=== PATIENT | male | born 1960 | race Caucasian/White ===

== ENCOUNTER 2016-12-04 12:35 | Emergency (ER) | payer MEDICARE, OTHER ==
--- NOTE | 2016-12-04 12:46 | ER Document Report ---
ED Medical Screen (RME) - General Stated Complaint: TOOTH PAIN Mode of Arrival: Ambulatory Information source: Patient Notes: 56 y/o M presents to ED c/o bliateral upper dental pain. Denies fever, difficulty breathing or swallowing. I have greeted and performed a rapid initial assessment of this patient. A comprehensive ED assessment and evaluation of the patient, analysis of test results and completion of the medical decision making process will be conducted by additional ED providers. TRAVEL OUTSIDE OF THE [place] IN LAST 30 DAYS: No - Related Data Allergies/Adverse Reactions: No Known Allergies Allergy (Verified 08/25/16 16:56) Past Medical History - Past Medical History Cardiac Medical History: Reports: Hx Hypertension Endocrine Medical History: Reports: Hx Diabetes Mellitus Type 2 Past Surgical History: Reports: Hx Orthopedic Surgery - neck/back, Hx Thyroid Surgery - Immunizations Hx Diphtheria, Pertussis, Tetanus Vaccination: Yes Physical Exam - Vital signs Vitals: Temp Pulse Resp BP Pulse Ox 98.1 F 72 20 134/84 H 96 12/04/16 12:42 12/04/16 12:42 12/04/16 12:42 12/04/16 12:42 12/04/16 12:42 - General General appearance: Appears well, Alert In distress: None - Respiratory Respiratory status: No respiratory distress Course - Vital Signs Vital signs: Temp Pulse Resp BP Pulse Ox 98.1 F 72 20 134/84 H 96 12/04/16 12:42 12/04/16 12:42 12/04/16 12:42 12/04/16 12:42 12/04/16 12:42
--- NOTE | 2016-12-04 16:42 | ER Document Report ---
ED Oral Problem - General Chief Complaint: Toothache Stated Complaint: TOOTH PAIN Mode of Arrival: Ambulatory TRAVEL OUTSIDE OF THE [place] IN LAST 30 DAYS: No - Related Data Allergies/Adverse Reactions: No Known Allergies Allergy (Verified 12/04/16 12:45) Past Medical History - General Information source: Patient - Social History Smoking Status: Current Every Day Smoker Chew tobacco use (# tins/day): No Frequency of alcohol use: None Drug Abuse: None Family History: Reviewed & Not Pertinent Patient has suicidal ideation: No Patient has homicidal ideation: No - Past Medical History Cardiac Medical History: Reports: Hx Hypertension Endocrine Medical History: Reports: Hx Diabetes Mellitus Type 2 Renal/ Medical History: Denies: Hx Peritoneal Dialysis Past Surgical History: Reports: Hx Orthopedic Surgery - neck/back, Hx Thyroid Surgery - Immunizations Hx Diphtheria, Pertussis, Tetanus Vaccination: Yes Physical Exam - Vital signs Vitals: Temp Pulse Resp BP Pulse Ox 98.1 F 72 20 134/84 H 96 12/04/16 12:42 12/04/16 12:42 12/04/16 12:42 12/04/16 12:42 12/04/16 12:42 Course - Vital Signs Vital signs: Temp Pulse Resp BP Pulse Ox 98.1 F 72 20 134/84 H 96 12/04/16 12:42 12/04/16 12:42 12/04/16 12:42 12/04/16 12:42 12/04/16 12:42 Discharge - Discharge Clinical Impression: Dental caries, Pain, dental Condition: Stable Disposition: HOME, SELF-CARE Instructions: Toothache ([facility]), [facility], Penicillin V K ([facility]), Dentist Additional Instructions: Please follow-up with one of the dental Clinics regarding your symptoms. Prescriptions: Naproxen [Naprosyn 250 mg Tablet] 250 mg PO DAILY PRN #30 tablet PRN Reason: Penicillin V Potassium [Penicillin Vk 500 mg Tablet] 500 mg PO TID #30 tablet Tramadol HCl [Ultram 50 mg Tablet] 50 mg PO BIDP PRN #20 tablet PRN Reason: Referrals: ERIN ESPOSITO MD [Primary Care Provider] - Follow up as needed
[2016-12-04 17:12] VITALS: BP 127/77
--- NOTE | 2016-12-04 17:17 | ER Document Report ---
ED Oral Problem - General Mode of Arrival: Ambulatory Information source: Patient TRAVEL OUTSIDE OF THE [place] IN LAST 30 DAYS: No - HPI Patient complains to provider of: Toothache Onset: Other - chronic for months Quality of pain: Achy Pain Level: 1 Similar symptoms previously: Yes - General Chief Complaint: Toothache Stated Complaint: TOOTH PAIN Notes: Patient is a 56-year-old male that presents to the emergency department today with complaints of dental pain. Patient states that he has had "bad teeth" for quite some time, and today he was talking to his pharmacist who told him he should come to the emergency department to be evaluated. Patient complains of pain to both the right upper and left upper teeth. Patient describes what sounds like an abscess a few weeks ago that has since drained. (ISIAH JACKSON) - Related Data Allergies/Adverse Reactions: No Known Allergies Allergy (Verified 12/04/16 12:45) Past Medical History - General Information source: Patient - Social History Smoking Status: Current Every Day Smoker Cigarette use (# per day): Yes Chew tobacco use (# tins/day): No Frequency of alcohol use: None Drug Abuse: None Lives with: Family Family History: Reviewed & Not Pertinent Patient has suicidal ideation: No Patient has homicidal ideation: No - Past Medical History Cardiac Medical History: Reports: Hx Hypertension Endocrine Medical History: Reports: Hx Diabetes Mellitus Type 2 Past Surgical History: Reports: Hx Orthopedic Surgery - neck/back, Hx Thyroid Surgery - Immunizations Hx Diphtheria, Pertussis, Tetanus Vaccination: Yes Review of Systems - Review of Systems Constitutional: No symptoms reported EENT: See HPI, Other - dental pain Cardiovascular: No symptoms reported Respiratory: No symptoms reported Gastrointestinal: No symptoms reported Genitourinary: No symptoms reported Male Genitourinary: No symptoms reported Musculoskeletal: No symptoms reported Skin: No symptoms reported Hematologic/Lymphatic: No symptoms reported Neurological/Psychological: No symptoms reported -: Yes All other systems reviewed and negative Physical Exam - HEENT Head: Normocephalic, Atraumatic Eyes: Normal - Respiratory Respiratory status: No respiratory distress - Cardiovascular Rhythm: Regular - Abdominal Inspection: Normal Distension: No distension - Extremities General upper extremity: Normal inspection, Normal ROM. No: Edema General lower extremity: Normal inspection, Normal ROM. No: Edema - Neurological Neuro grossly intact: Yes Cognition: Normal Orientation: AAOx4 - Psychological Associated symptoms: Normal affect, Normal mood - Skin Skin Temperature: Warm Skin Moisture: Dry Skin Color: Normal - Vital signs Vitals: Temp Pulse Resp BP Pulse Ox 98.1 F 72 20 134/84 H 96 12/04/16 12:42 12/04/16 12:42 12/04/16 12:42 12/04/16 12:42 12/04/16 12:42 (ISIAH JACKSON) (MELLO BARKLEY) - HEENT Notes: Poor dentition throughout. No fluctuance or erythema. No mandibular swelling or cheek swelling. Multiple dental caries throughout. (ISIAH JACKSON) Course - Re-evaluation Re-evalutation: 12/04/16 Patient is a 56-year-old male who comes in with dental caries. Patient has had toothache for quite some time. Patient states that one tooth is bothering him more than usual recently. Patient will be started on penicillin and given a list of low-cost dental clinics. Understands and agrees with plan. Stable for discharge. No evidence for abscess at this time. (MELLO BARKLEY) - Vital Signs Vital signs: Temp Pulse Resp BP Pulse Ox 97.8 F 64 16 127/77 H 98 12/04/16 17:08 12/04/16 17:08 12/04/16 17:08 12/04/16 17:08 12/04/16 17:08 (ISIAH JACKSON) (MELLO BARKLEY) Discharge - Discharge Clinical Impression: Dental caries, Pain, dental Condition: Stable Disposition: HOME, SELF-CARE Instructions: [facility], Dentist, Penicillin V K ([facility]), Toothache ([facility]) Additional Instructions: Please follow-up with one of the dental Clinics regarding your symptoms. Prescriptions: Naproxen [Naprosyn 250 mg Tablet] 250 mg PO DAILY PRN #30 tablet PRN Reason: Penicillin V Potassium [Penicillin Vk 500 mg Tablet] 500 mg PO TID #30 tablet Tramadol HCl [Ultram 50 mg Tablet] 50 mg PO BIDP PRN #20 tablet PRN Reason: Referrals: ERIN ESPOSITO MD [Primary Care Provider] - Follow up as needed Scribe Attestation: 12/04/16 18:25 I personally performed the services described in the documentation, reviewed and edited the documentation which was dictated to the scribe in my presence, and it accurately records my words and actions. (MELLO BARKLEY) Scribe Documentation - Scribe Written by Olivier:: Olivier Rosales, 12/04/2016 1717 acting as scribe for :: Fatimah
== END 2016-12-04 16:50 | disposition home or self-care (01) ==
LOC: ER 12:35
DX: K02.9 Dental caries, unspecified (principal); K08.9 Disorder of teeth and supporting structures, unspecified; F17.210 Nicotine dependence, cigarettes, uncomplicated; I10 Essential (primary) hypertension; E11.9 Type 2 diabetes mellitus without complications
CPT/HCPCS: 99282

== ENCOUNTER → 2016-12-29 | Outpatient (CLI) | payer MEDICARE, OTHER ==
[2016-12-29 13:44] LABS: ALANINE AMINOTRANSFERASE 32 U/L (21-72); ALBUMIN 4.4 g/dL (3.5-5.0); ALKALINE PHOSPHATASE 53 U/L (38-126); ANION GAP 13 (5-19); ASPARTATE AMINO TRANSFERASE 16 U/L (17-59); BILIRUBIN,DIRECT 0.3 mg/dL (0.0-0.4); BILIRUBIN,TOTAL 0.9 mg/dL (0.2-1.3); BLOOD UREA NITROGEN 13 mg/dL (7-20); CARBON DIOXIDE 29 mmol/L (22-30); CHLORIDE 101 mmol/L (98-107); CHOLESTEROL 172.06 mg/dL (0-200); CREATININE RESULT 0.98 mg/dL (0.52-1.25); Direct HDL 40 mg/dL (>40); GLUCOSE 107 mg/dL (75-110); POTASSIUM 5.4 mmol/L (3.6-5.0); SODIUM 142.8 mmol/L (137-145); TOTAL PROTEIN 7.1 g/dL (6.3-8.2); TRIGLYCERIDES 96 mg/dL (<150)
[2016-12-29 14:08] LABS: DIRECT LDL 110 mg/dL (<100)
== END ==
LOC: OD 12:38
PROVIDERS: ATTEND Internal Medicine
DX: I35.1 Nonrheumatic aortic (valve) insufficiency (principal); I10 Essential (primary) hypertension; E78.4 Other hyperlipidemia; E11.9 Type 2 diabetes mellitus without complications; M48.00 Spinal stenosis, site unspecified; R07.9 Chest pain, unspecified; Z79.899 Other long term (current) drug therapy
CPT/HCPCS: 36415; 80053; 80061; 83036

== ENCOUNTER 2017-01-11 18:40 | Emergency (ER) | payer MEDICARE, OTHER ==
[2017-01-11] MEDS ORDERED: LIDOCAINE 1% INJ-PF (10 MG/ML) 30 ML SDV INJ ONE (19:30)
--- NOTE | 2017-01-11 19:32 | ER Document Report ---
ED General - General Chief Complaint: Foot Pain Stated Complaint: RIGHT FOOT TOE PROBLEM TRAVEL OUTSIDE OF THE [place] IN LAST 30 DAYS: No - HPI Patient complains to provider of: foot infection Notes: Diabetic her right third toe infection with possible surrounding cellulitis looks like possible paronychia. Denies fevers chills nausea vomiting - Related Data Allergies/Adverse Reactions: Penicillins Allergy (Verified 01/11/17 18:46) Past Medical History - Social History Smoking Status: Unknown if Ever Smoked Family History: Reviewed & Not Pertinent Patient has suicidal ideation: No Patient has homicidal ideation: No - Past Medical History Cardiac Medical History: Reports: Hx Hypertension Endocrine Medical History: Reports: Hx Diabetes Mellitus Type 2 Renal/ Medical History: Denies: Hx Peritoneal Dialysis Past Surgical History: Reports: Hx Orthopedic Surgery - neck/back, Hx Thyroid Surgery - Immunizations Hx Diphtheria, Pertussis, Tetanus Vaccination: Yes Review of Systems - Review of Systems Constitutional: Other - Foot infection Physical Exam - Vital signs Vitals: Temp Pulse Resp BP Pulse Ox 98.5 F 102 H 21 H 120/66 97 01/11/17 18:47 01/11/17 18:47 01/11/17 18:47 01/11/17 18:47 01/11/17 18:47 - Respiratory Respiratory status: No respiratory distress Chest status: Nontender Breath sounds: Normal Course - Vital Signs Vital signs: Temp Pulse Resp BP Pulse Ox 98.5 F 102 H 21 H 120/66 97 01/11/17 18:47 01/11/17 18:47 01/11/17 18:47 01/11/17 18:47 01/11/17 18:47
[2017-01-11 19:49] LABS: ABSOLUTE BASOPHILS # (AUTO) 0.1 10^3/uL (0.0-0.2); ABSOLUTE EOSINOPHILS # (AUTO) 0.2 10^3/uL (0.0-0.6); ABSOLUTE LYMPHOCYTES (AUTO) 1.3 10^3/uL (0.5-4.7); ABSOLUTE MONOCYTES (AUTO) 1.2 10^3/uL (0.1-1.4); ABSOLUTE NEUT (AUTO) 14.7 10^3/uL (1.7-8.2); BASOPHILS % (AUTO) 0.3 % (0-2); EOSINOPHILS % (AUTO) 1.1 % (0-6); HEMATOCRIT 48.4 % (37.9-51.0); HGB HCT DIFFERENCE -0.4; LYMPHOCYTES % (AUTO) 7.7 % (13-45); MEAN CORPUSCULAR HEMOGLOBIN 28.4 pg (27.0-33.4); MEAN CORPUSCULAR VOLUME 86 fl (80-97); MONOCYTES % (AUTO) 6.8 % (3-13); RED BLOOD COUNT 5.63 10^6/uL (4.35-5.55); RED CELL DISTRIBUTION WIDTH 13.5 % (11.5-14.0); SEGMENTED NEUTROPHILS % (AUTO) 84.1 % (42-78); WHITE BLOOD COUNT 17.5 10^3/uL (4.0-10.5)
[2017-01-11 20:06] LABS: ANION GAP 17 (5-19); BLOOD UREA NITROGEN 18 mg/dL (7-20); CALCIUM 10.1 mg/dL (8.4-10.2); CARBON DIOXIDE 26 mmol/L (22-30); CHLORIDE 100 mmol/L (98-107); GLUCOSE 97 mg/dL (75-110); POTASSIUM 4.7 mmol/L (3.6-5.0); SODIUM 143.4 mmol/L (137-145)
[2017-01-11] MEDS ORDERED: CLINDAMYCIN 600 MG/D5W RTU 50 ML IV ONE (23:07)
--- NOTE | 2017-01-12 02:45 | ER Document Report ---
ED Extremity Problem, Lower - General Chief Complaint: Foot Pain Stated Complaint: RIGHT FOOT TOE PROBLEM Mode of Arrival: Ambulatory Information source: Patient Notes: 56 y/o M presents to ED c/o right 3rd toe swelling, redness, and pain. Pt reports "picks" at his toenails and noted onset of progressively worsening symptoms approximately 3 days ago. Denies fever, leg or calf pain, drainage, nausea or vomiting. Pt reports hx of type 2 DM controlled on Metformin. Reports tetanus vaccination within the last 2 years. TRAVEL OUTSIDE OF THE [place] IN LAST 30 DAYS: No - HPI Patient complains to provider of: Pain Pain Level: 2 Recent injury: No Exacerbated by: Movement, Walking Relieved by: Elevation, Rest - Related Data Allergies/Adverse Reactions: Penicillins Allergy (Verified 01/11/17 18:46) Past Medical History - General Information source: Patient - Social History Smoking Status: Never Smoker Frequency of alcohol use: None Drug Abuse: None Lives with: Family Family History: Reviewed & Not Pertinent Patient has suicidal ideation: No Patient has homicidal ideation: No - Past Medical History Cardiac Medical History: Reports: Hx Hypertension Endocrine Medical History: Reports: Hx Diabetes Mellitus Type 2 Renal/ Medical History: Denies: Hx Peritoneal Dialysis Past Surgical History: Reports: Hx Orthopedic Surgery - neck/back, Hx Thyroid Surgery - Immunizations Hx Diphtheria, Pertussis, Tetanus Vaccination: Yes Review of Systems - Review of Systems Constitutional: No symptoms reported EENT: No symptoms reported Cardiovascular: No symptoms reported Respiratory: No symptoms reported Gastrointestinal: No symptoms reported Genitourinary: No symptoms reported Male Genitourinary: No symptoms reported Musculoskeletal: See HPI Skin: No symptoms reported Hematologic/Lymphatic: No symptoms reported Neurological/Psychological: No symptoms reported -: Yes All other systems reviewed and negative Physical Exam - Vital signs Vitals: Temp Pulse Resp BP Pulse Ox 98.5 F 102 H 21 H 120/66 97 01/11/17 18:47 01/11/17 18:47 01/11/17 18:47 01/11/17 18:47 01/11/17 18:47 Interpretation: Normal - General General appearance: Appears well, Alert In distress: None - HEENT Head: Normocephalic, Atraumatic Eyes: Normal Pupils: PERRL - Respiratory Respiratory status: No respiratory distress Chest status: Nontender Breath sounds: Normal Chest palpation: Normal - Cardiovascular Rhythm: Regular Heart sounds: Normal auscultation Murmur: No Pulses: Normal: Radial, Posterior tibial, Dorsalis pedis Normal capillary refill: Yes - Abdominal Inspection: Normal Distension: No distension Bowel sounds: Normal Tenderness: Nontender Organomegaly: No organomegaly - Back Back: Normal, Nontender - Extremities General upper extremity: Normal inspection, Nontender, Normal color, Normal ROM , Normal strength, Normal temperature. No: Edema General lower extremity: Normal inspection, Nontender, Normal color, Normal ROM , Normal strength, Normal temperature, Normal weight bearing. No: Edema, Diego' s sign Calf: Normal, Nontender Ankle: Normal, Nontender Foot: Nail injury - pt has paronychia/abscess to medial aspect of distal right 3rd toe. Localized swelling and erythema extends to base of toe. No swelling, erythema, or warmth to foot or lower leg. Fine sensation intact, immediate capillary refill, and palpable pedal pulses. 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 Paronychia incised and drained and toenail removed as it was loosely attached to abscessed area. No significant cellulitis involving the foot or leg. Patient tolerated well. First dose clindamycin given in the emergency department intravenously as patient is allergic to penicillins. Patient presentation, findings, and care were discussed with Dr. Novak who is on-call for patient's primary care provider Dr. Esposito. Patient will follow- up with PCP tomorrow and agrees with home care, follow-up, and ED return precautions. - Vital Signs Vital signs: Temp Pulse Resp BP Pulse Ox 98.5 F 87 16 110/53 L 96 01/12/17 03:15 01/12/17 03:15 01/12/17 03:15 01/12/17 03:15 01/12/17 03:15 - Laboratory Result Diagrams: 01/11/17 19:30 01/11/17 19:30 Laboratory results interpreted by me: 01/11/17 19:30 WBC 17.5 H RBC 5.63 H Seg Neutrophils % 84.1 H Lymphocytes % 7.7 L Absolute Neutrophils 14.7 H - Diagnostic Test Radiology reviewed: Image reviewed, Reports reviewed Procedures - Nail Trephanation/Removal Right Foot 3rd digit Time completed: 01:00 - analgesia with digital block with 1% lidocaine Nail Trepanation/Removal Location: right 3rd toe Betadine prep applied: Yes Method of Drainage: Other - paronychia was drained with scalpel incision and toenail was completely removed. Pt tolerated well. Sterile Dressing Applied: Yes Finger Splint: Yes - amilcar taped to 2nd toe Discharge - Discharge Clinical Impression: Paronychia of third toe, right, Cellulitis of toe of right foot Condition: Stable Disposition: HOME, SELF-CARE Instructions: Paronychia ([facility]), Elevate the Injury ([facility]), Clindamycin ([facility]), Anti-Inflammatory Medication ([facility]), Cellulitis ([facility]) Additional Instructions: -Keep area clean and dry. -Do Warm water soaks twice daily for 5-10 mins using Half-strength hydrogen peroxide OR Dilute povidone solution 1 tsp/gallon water for 5 to 7 days -Elevate your leg and wear open or wide toed shoes. -Follow-up with your primary care provider tomorrow. -Return to the emergency department for any worsening symptoms or concerns. Prescriptions: Clindamycin HCl 300 mg PO Q6H #28 capsule Naproxen [Naprosyn 375 Mg Tablet] 375 mg PO BIDP PRN #10 tablet PRN Reason: Referrals: ERIN ESPOSITO MD [Primary Care Provider] - Follow up tomorrow
[2017-01-12 03:32] VITALS: BP 110/53
== END 2017-01-12 03:34 | disposition home or self-care (01) ==
LOC: ER 18:40
PROC: 0HBRXZZ Excision of Toe Nail, External Approach (ICD-10-PCS; principal; 2017-01-11)
DX: L03.031 Cellulitis of right toe (principal); M79.671 Pain in right foot; E11.9 Type 2 diabetes mellitus without complications
CPT/HCPCS: 36415; 80048; 85025; 87040; 87070; 87075; 87077; 87186; 87205; 96365; 99284

== ENCOUNTER 2017-02-03 19:36 | Emergency (ER) | payer MEDICARE, OTHER ==
[2017-02-03] MEDS ORDERED: NORMAL SALINE 1000 ML 1,000 ML IV PRN ×2 (20:00→20:29)
[2017-02-03 20:08] LABS: ABSOLUTE BASOPHILS # (AUTO) 0.1 10^3/uL (0.0-0.2); ABSOLUTE EOSINOPHILS # (AUTO) 0.1 10^3/uL (0.0-0.6); ABSOLUTE MONOCYTES (AUTO) 0.8 10^3/uL (0.1-1.4); ABSOLUTE NEUT (AUTO) 12.4 10^3/uL (1.7-8.2); BASOPHILS % (AUTO) 0.5 % (0-2); EOSINOPHILS % (AUTO) 0.7 % (0-6); HEMATOCRIT 42.3 % (37.9-51.0); HEMOGLOBIN 13.9 g/dL (13.5-17.0); HGB HCT DIFFERENCE -0.6; LYMPHOCYTES % (AUTO) 7.3 % (13-45); MEAN CORPUSCULAR HEMOGLOBIN 28.4 pg (27.0-33.4); MEAN CORPUSCULAR HGB CONC 32.8 g/dL (32.0-36.0); MEAN CORPUSCULAR VOLUME 86 fl (80-97); MONOCYTES % (AUTO) 5.3 % (3-13); RED CELL DISTRIBUTION WIDTH 13.8 % (11.5-14.0); SEGMENTED NEUTROPHILS % (AUTO) 86.2 % (42-78); WHITE BLOOD COUNT 14.3 10^3/uL (4.0-10.5)
--- NOTE | 2017-02-03 20:13 | ER Document Report ---
ED Dizziness/Weakness - General Stated Complaint: WEAKNESS Time seen by provider: 20:09 Mode of Arrival: Stretcher Information source: Patient TRAVEL OUTSIDE OF THE [place] IN LAST 30 DAYS: No - HPI Patient complains to provider of: Dizziness Onset: Just prior to arrival Onset/Duration: Sudden Quality of pain: No pain Severity: Moderate Associated symptoms: Dizzy, Hearing loss, Lightheaded, Sweating Baseline gait: Walks w/o assistance Notes: Patient is a 56-year-old male with a history of diabetes, hypothyroidism, hypertension and BPH, who presents to the emergency room complaining of dizziness with diaphoresis, decreased vision and decreased hearing that started abruptly just after eating dinner which consistent of a burger, fries and a soft drink, he denies any chest pain, no shortness of breath at time of symptoms , no abdominal pain, he does report diffuse muscle cramping over the past few days and shortness of breath while laying flat on the stretcher at time of evaluation, he reports a history of vertigo in the past but reports he symptoms are slightly different, EMS reports that his initial blood pressure on arrival was 80/40, he got 200 mL's of normal saline, patient reports feeling much better at time of my initial evaluation - Related Data Allergies/Adverse Reactions: Penicillins Allergy (Verified 02/03/17 23:01) Past Medical History - General Information source: Patient - Social History Smoking Status: Never Smoker Family History: Reviewed & Not Pertinent - Past Medical History Cardiac Medical History: Reports: Hx Hypertension Endocrine Medical History: Reports: Hx Diabetes Mellitus Type 2 Renal/ Medical History: Denies: Hx Peritoneal Dialysis Past Surgical History: Reports: Hx Orthopedic Surgery - neck/back, Hx Thyroid Surgery - Immunizations Hx Diphtheria, Pertussis, Tetanus Vaccination: Yes Review of Systems - Review of Systems Constitutional: Diaphoresis EENT: No symptoms reported Cardiovascular: See HPI Respiratory: No symptoms reported Gastrointestinal: No symptoms reported Genitourinary: No symptoms reported Male Genitourinary: No symptoms reported Musculoskeletal: See HPI Skin: No symptoms reported Hematologic/Lymphatic: No symptoms reported Neurological/Psychological: No symptoms reported -: Yes All other systems reviewed and negative Physical Exam - Vital signs Vitals: Temp Pulse Resp BP Pulse Ox 98.1 F 75 18 89/56 L 98 02/03/17 19:40 02/03/17 19:40 02/03/17 19:40 02/03/17 19:40 02/03/17 19:40 Interpretation: Hypotensive - General General appearance: Appears well, Alert - HEENT Head: Normocephalic, Atraumatic Eyes: Normal Pupils: PERRL - Respiratory Respiratory status: No respiratory distress Chest status: Nontender Breath sounds: Normal Chest palpation: Normal - Cardiovascular Rhythm: Regular Heart sounds: Normal auscultation Murmur: No - Abdominal Inspection: Normal Distension: No distension Bowel sounds: Normal Tenderness: Nontender Organomegaly: No organomegaly - Back Back: Normal, Nontender - Extremities General upper extremity: Normal inspection, Nontender, Normal color, Normal ROM , Normal temperature General lower extremity: Normal inspection, Nontender, Normal color, Normal ROM , Normal temperature, Normal weight bearing. No: Diego's sign - Neurological Neuro grossly intact: Yes Cognition: Normal Orientation: AAOx4 [place] Coma Scale Eye Opening: Spontaneous [place] Coma Scale Verbal: Oriented Gayatri Coma Scale Motor: Obeys Commands [place] Coma Scale Total: 15 Speech: Normal Motor strength normal: LUE, RUE, LLE, RLE Sensory: Normal - Psychological Associated symptoms: Normal affect, Normal mood - Skin Skin Temperature: Warm Skin Moisture: Dry Skin Color: Normal Course - Re-evaluation Re-evalutation: 02/03/17 23:22 Patient reports feeling much better after IV fluids, lab findings were discussed with him at bedside, patient was able to ambulate without any return of symptoms, vital signs have been stable, patient will be discharged with instructions for follow-up, advised to return if symptoms worsen, patient acknowledges understanding and agreement with this plan - Vital Signs Vital signs: Temp Pulse Resp BP Pulse Ox 98.7 F 75 16 127/71 H 94 02/03/17 22:58 02/03/17 19:40 02/03/17 22:53 02/03/17 22:58 02/03/17 22:53 - Laboratory Result Diagrams: 02/03/17 19:54 02/03/17 19:54 Laboratory results interpreted by me: 02/03/17 02/03/17 19:54 19:54 WBC 14.3 H Seg Neutrophils % 86.2 H Lymphocytes % 7.3 L Absolute Neutrophils 12.4 H Creatinine 1.66 H Est GFR ( Amer) 52 L Est GFR (Non-Af Amer) 43 L Glucose 181 H Creatine Kinase 53 L - EKG Interpretation by Me EKG shows normal: Sinus rhythm Rate: Normal Rhythm: NSR When compared to previous EKG there are: No significant change Critical Care Note - Critical Care Note Total time excluding time spent on procedures (mins): 30 Comments: Patient arrived to the department hypotensive with dizziness and near syncopal episode, requiring IV fluids, repeat vital signs and multiple re-evaluations prior to discharge Discharge - Discharge Clinical Impression: Dizziness, Dehydration Hypotension Qualifiers: Hypotension type: unspecified hypotension type Qualified Code(s): I95.9 - Hypotension, unspecified Condition: Stable Disposition: HOME, SELF-CARE Instructions: Dehydration ([facility]), Hypotension ([facility]) Additional Instructions: Follow up with your primary care provider in one to 2 days. Return to the emergency room immediately if symptoms worsen or any additional concerns. Forms: Return to Work Referrals: ERIN ESPOSITO MD [Primary Care Provider] - Follow up as needed
[2017-02-03 20:27] LABS: ALANINE AMINOTRANSFERASE 31 U/L (21-72); ALKALINE PHOSPHATASE 48 U/L (38-126); ANION GAP 15 (5-19); ASPARTATE AMINO TRANSFERASE 17 U/L (17-59); BILIRUBIN,DIRECT 0.3 mg/dL (0.0-0.4); BILIRUBIN,TOTAL 0.7 mg/dL (0.2-1.3); BLOOD UREA NITROGEN 18 mg/dL (7-20); CARBON DIOXIDE 25 mmol/L (22-30); CHLORIDE 99 mmol/L (98-107); CREATINE KINASE 53 U/L (55-170); CREATININE RESULT 1.66 mg/dL (0.52-1.25); GLUCOSE 181 mg/dL (75-110); POTASSIUM 4.8 mmol/L (3.6-5.0); SODIUM 138.7 mmol/L (137-145); TOTAL PROTEIN 6.7 g/dL (6.3-8.2)
[2017-02-03 20:42] LABS: TROPONIN I < 0.012 ng/mL
[2017-02-03 20:44] LABS: FREE T3 2.98 pg/mL (2.77-5.27)
[2017-02-03 20:58] LABS: THYROID STIMULATING HORMONE 4.66 uIU/mL (0.47-4.68)
--- NOTE | 2017-02-03 22:20 | EKG REPORT ---
SEVERITY:- BORDERLINE ECG - SINUS RHYTHM PROBABLE LEFT ATRIAL ABNORMALITY BORDERLINE LEFT AXIS DEVIATION : Confirmed by: Dimitri Salazar 03-Feb-2017 22:20:24
[2017-02-03 23:06] VITALS: BP 127/71
== END 2017-02-03 23:16 | disposition home or self-care (01) ==
LOC: ER 19:36
DX: E86.0 Dehydration (principal); I95.9 Hypotension, unspecified; R42 Dizziness and giddiness; R61 Generalized hyperhidrosis; E11.9 Type 2 diabetes mellitus without complications; I10 Essential (primary) hypertension; H54.7 Unspecified visual loss; H91.90 Unspecified hearing loss, unspecified ear; M62.838 Other muscle spasm; R06.02 Shortness of breath; Z88.0 Allergy status to penicillin
CPT/HCPCS: 36415; 80053; 82550; 82553; 82962; 84439; 84443; 84481; 84484; 85025; 93005; 93010; 99291

== ENCOUNTER → 2017-04-29 | Outpatient (CLI) | payer MEDICARE, OTHER ==
[2017-05-01 10:15] LABS: PROSTATE SPECIFIC ANTIGEN 2.4 ng/mL (0.0-4.0); PSA % FREE 20.4 % (.); PSA FREE 0.49 ng/mL
== END ==
LOC: OD 15:47
PROVIDERS: ATTEND Urology
DX: N40.1 Benign prostatic hyperplasia with lower urinary tract symptoms (principal)
CPT/HCPCS: 36415; 84154

== ENCOUNTER → 2017-07-06 | Outpatient (CLI) | payer MEDICARE, OTHER ==
[2017-07-06 15:10] LABS: ALANINE AMINOTRANSFERASE 37 U/L (21-72); ALBUMIN 4.2 g/dL (3.5-5.0); ALKALINE PHOSPHATASE 58 U/L (38-126); ANION GAP 10 (5-19); ASPARTATE AMINO TRANSFERASE 19 U/L (17-59); BILIRUBIN,DIRECT 0.3 mg/dL (0.0-0.4); BILIRUBIN,TOTAL 0.9 mg/dL (0.2-1.3); BLOOD UREA NITROGEN 10 mg/dL (7-20); CALCIUM 9.5 mg/dL (8.4-10.2); CARBON DIOXIDE 30 mmol/L (22-30); CHLORIDE 100 mmol/L (98-107); CHOLESTEROL 170.43 mg/dL (0-200); CREATININE RESULT 0.93 mg/dL (0.52-1.25); Direct HDL 43 mg/dL (>40); GLUCOSE 89 mg/dL (75-110); POTASSIUM 4.8 mmol/L (3.6-5.0); SODIUM 140.3 mmol/L (137-145); TRIGLYCERIDES 80 mg/dL (<150)
[2017-07-06 15:22] LABS: DIRECT LDL 111 mg/dL (<100)
== END ==
LOC: OD 14:03
PROVIDERS: ATTEND Internal Medicine
DX: I35.1 Nonrheumatic aortic (valve) insufficiency (principal); I10 Essential (primary) hypertension; E78.4 Other hyperlipidemia; E11.9 Type 2 diabetes mellitus without complications; M48.00 Spinal stenosis, site unspecified; R07.9 Chest pain, unspecified; Z79.899 Other long term (current) drug therapy
CPT/HCPCS: 36415; 80053; 80061; 83036

== ENCOUNTER → 2018-01-01 | Outpatient (CLI) | payer MEDICARE ==
[2018-01-01 11:04] LABS: ALANINE AMINOTRANSFERASE 35 U/L (21-72); ALBUMIN 4.4 g/dL (3.5-5.0); ALKALINE PHOSPHATASE 47 U/L (38-126); ANION GAP 7 (5-19); ASPARTATE AMINO TRANSFERASE 17 U/L (17-59); BILIRUBIN,DIRECT 0.3 mg/dL (0.0-0.4); BILIRUBIN,TOTAL 0.3 mg/dL (0.2-1.3); BLOOD UREA NITROGEN 17 mg/dL (7-20); CALCIUM 9.7 mg/dL (8.4-10.2); CARBON DIOXIDE 32 mmol/L (22-30); CHLORIDE 103 mmol/L (98-107); CHOLESTEROL 159.01 mg/dL (0-200); GLUCOSE 111 mg/dL (75-110); POTASSIUM 5.2 mmol/L (3.6-5.0); SODIUM 141.8 mmol/L (137-145); TOTAL PROTEIN 7.2 g/dL (6.3-8.2); TRIGLYCERIDES 80 mg/dL (<150)
[2018-01-01 11:15] LABS: DIRECT LDL 107 mg/dL (<100)
== END ==
LOC: OD 09:57
PROVIDERS: ATTEND Internal Medicine
DX: I35.1 Nonrheumatic aortic (valve) insufficiency (principal); E11.9 Type 2 diabetes mellitus without complications; I10 Essential (primary) hypertension; E78.4 Other hyperlipidemia; R07.9 Chest pain, unspecified; Z79.899 Other long term (current) drug therapy
CPT/HCPCS: 36415; 80053; 80061; 83036

== ENCOUNTER → 2018-04-05 | Outpatient (CLI) | payer MEDICARE, MEDICAID ==
[2018-04-05 12:46] LABS: ALANINE AMINOTRANSFERASE 47 U/L (21-72); ALBUMIN 4.5 g/dL (3.5-5.0); ALKALINE PHOSPHATASE 51 U/L (38-126); ASPARTATE AMINO TRANSFERASE 24 U/L (17-59); BILIRUBIN,DIRECT 0.3 mg/dL (0.0-0.4); BILIRUBIN,TOTAL 0.6 mg/dL (0.2-1.3); CHOLESTEROL 122.68 mg/dL (0-200); TRIGLYCERIDES 78 mg/dL (<150)
[2018-04-05 12:57] LABS: DIRECT LDL 58 mg/dL (<100)
== END ==
LOC: OD 11:23
PROVIDERS: ATTEND Internal Medicine
DX: I35.1 Nonrheumatic aortic (valve) insufficiency (principal); I10 Essential (primary) hypertension; E78.4 Other hyperlipidemia; E11.9 Type 2 diabetes mellitus without complications; M48.00 Spinal stenosis, site unspecified; R07.9 Chest pain, unspecified; Z79.899 Other long term (current) drug therapy
CPT/HCPCS: 36415; 80061; 80076

== ENCOUNTER → 2018-04-30 | Outpatient (CLI) | payer MEDICARE, MEDICAID ==
[2018-05-01 16:46] LABS: PROSTATE SPECIFIC ANTIGEN 2.2 ng/mL (0.0-4.0); PSA % FREE 26.8 % (.); PSA FREE 0.59 ng/mL
== END ==
LOC: OD 11:32
PROVIDERS: ATTEND Urology
DX: N40.1 Benign prostatic hyperplasia with lower urinary tract symptoms (principal)
CPT/HCPCS: 36415; 84154

== ENCOUNTER → 2018-05-18 | Outpatient (CLI) | payer MEDICARE, MEDICAID ==
[2018-05-18 13:52] LABS: ABSOLUTE BASOPHILS # (AUTO) 0.1 10^3/uL (0.0-0.2); ABSOLUTE EOSINOPHILS # (AUTO) 0.2 10^3/uL (0.0-0.6); ABSOLUTE LYMPHOCYTES (AUTO) 1.6 10^3/uL (0.5-4.7); ABSOLUTE MONOCYTES (AUTO) 0.7 10^3/uL (0.1-1.4); ABSOLUTE NEUT (AUTO) 6.5 10^3/uL (1.7-8.2); BASOPHILS % (AUTO) 0.9 % (0-2); EOSINOPHILS % (AUTO) 2.6 % (0-6); HEMOGLOBIN 16.2 g/dL (13.5-17.0); LYMPHOCYTES % (AUTO) 17.2 % (13-45); MEAN CORPUSCULAR HEMOGLOBIN 31.2 pg (27.0-33.4); MEAN CORPUSCULAR HGB CONC 34.4 g/dL (32.0-36.0); MEAN CORPUSCULAR VOLUME 91 fl (80-97); MONOCYTES % (AUTO) 7.9 % (3-13); PLATELET COUNT 259 10^3/uL (150-450); RED BLOOD COUNT 5.18 10^6/uL (4.35-5.55); RED CELL DISTRIBUTION WIDTH 13.8 % (11.5-14.0); SEGMENTED NEUTROPHILS % (AUTO) 71.4 % (42-78); TOTAL CELLS COUNTED % (AUTO) 100 %; WHITE BLOOD COUNT 9.2 10^3/uL (4.0-10.5)
[2018-05-18 14:20] LABS: ALANINE AMINOTRANSFERASE 44 U/L (21-72); ALBUMIN 4.7 g/dL (3.5-5.0); ALKALINE PHOSPHATASE 64 U/L (38-126); ANION GAP 12 (5-19); ASPARTATE AMINO TRANSFERASE 28 U/L (17-59); BILIRUBIN,DIRECT 0.3 mg/dL (0.0-0.4); BLOOD UREA NITROGEN 19 mg/dL (7-20); CALCIUM 10.2 mg/dL (8.4-10.2); CARBON DIOXIDE 28 mmol/L (22-30); CHLORIDE 101 mmol/L (98-107); CHOLESTEROL 121.38 mg/dL (0-200); GLUCOSE 113 mg/dL (75-110); POTASSIUM 5.3 mmol/L (3.6-5.0); SODIUM 141.4 mmol/L (137-145); TOTAL PROTEIN 7.8 g/dL (6.3-8.2); TRIGLYCERIDES 87 mg/dL (<150)
[2018-05-18 14:33] LABS: DIRECT LDL 57 mg/dL (<100)
[2018-05-18 14:38] LABS: FREE T4 (FREE THYROXINE) 1.75 ng/dL (0.78-2.19)
[2018-05-18 14:52] LABS: THYROID STIMULATING HORMONE 3.49 uIU/mL (0.47-4.68)
== END ==
LOC: OD 12:53
PROVIDERS: ATTEND Family Medicine
DX: E03.9 Hypothyroidism, unspecified (principal); E78.4 Other hyperlipidemia; I10 Essential (primary) hypertension; E11.9 Type 2 diabetes mellitus without complications
CPT/HCPCS: 36415; 80053; 80061; 83036; 84439; 84443; 85025

== ENCOUNTER 2018-07-08 21:43 | Emergency (ER) | payer MEDICARE, MEDICAID ==
[2018-07-08] MEDS ORDERED: KETOROLAC TROMETHAMINE INJ/PF 30 MG/1 ML SDV IV ONE (22:39)
[2018-07-08] MEDS ORDERED: MORPHINE SULFATE 10 MG/ML INJ IV ONE (22:39)
[2018-07-08] MEDS ORDERED: ONDANSETRON HCL INJ/PF 4 MG/2 ML SDV IV ONE (22:39)
--- NOTE | 2018-07-08 22:43 | ER Document Report ---
ED Medical Screen (RME) - General Chief Complaint: Flank Pain Stated Complaint: SEVERE RIGHT SIDED BACK PAIN Time Seen by Provider: 07/08/18 22:39 Mode of Arrival: Ambulatory Information source: Patient Notes: Patient is a 57-year-old male who presents to the emergency department with sudden onset right flank pain with radiation down into his right groin. Patient reports associated nausea but no vomiting or diarrhea patient reports he was feeling just fine when the pain hit him. Patient denies any history of kidney stones. Patient has not urinated since the pain started so patient is unsure if he has blood in his urine. Patient appears to be in moderate distress Exam: Tenderness to palpation to right flank and right lower quadrant Patient appears to be in moderate distress I have greeted and performed a rapid initial assessment of this patient. A comprehensive ED assessment and evaluation of the patient, analysis of test results and completion of the medical decision making process will be conducted by additional ED providers. Dictation of this chart was performed using voice recognition software; therefore, there may be some unintended grammatical errors. TRAVEL OUTSIDE OF THE [place] IN LAST 30 DAYS: No - Related Data Allergies/Adverse Reactions: Penicillins Allergy (Verified 02/03/17 23:01) Past Medical History - Past Medical History Cardiac Medical History: Reports: Hx Hypertension Endocrine Medical History: Reports: Hx Diabetes Mellitus Type 2 Renal/ Medical History: Denies: Hx Peritoneal Dialysis Past Surgical History: Reports: Hx Orthopedic Surgery - neck/back, Hx Thyroid Surgery - Immunizations Hx Diphtheria, Pertussis, Tetanus Vaccination: Yes Physical Exam - Vital signs Vitals: Temp Pulse Resp BP Pulse Ox 98 F 72 18 125/67 95 07/08/18 21:43 07/08/18 21:43 07/08/18 21:43 07/08/18 21:43 07/08/18 21:43 Course - Vital Signs Vital signs: Temp Pulse Resp BP Pulse Ox 98 F 72 18 125/67 95 07/08/18 21:43 07/08/18 21:43 07/08/18 21:43 07/08/18 21:43 07/08/18 21:43 Doctor's Discharge - Discharge Referrals: ERIN ESPOSITO MD [Primary Care Provider] - Follow up as needed
--- NOTE | 2018-07-08 23:31 | RADIOLOGY REPORT (SQ) ---
EXAM DESCRIPTION: CT ABDOMEN WITHOUT IV CONTRAST COMPLETED DATE/TME: 07/08/2018 22:40 CLINICAL HISTORY: 57 years Male, right flank/groin pain sudden onset Comparison: None. Technique: No contrast. Coronal and sagittal reformat. This exam was performed according to our departmental dose-optimization program, which includes automated exposure control, adjustment of the mA and/or kV according to patient size and/or use of iterative reconstruction technique.[facility]: Dose Right [facility]: CareDose [facility]: Dose Right [facility]: Teradose 4D [facility]: ShopSpot LIMITATIONS: None Findings: Degenerative disc disease. Moderate perinephric fat stranding. Right inguinal hernia involves an otherwise normal-appearing appendix. Left inguinal fat only hernia. Coronary arterial calcification/stent. Atherosclerosis. Several sclerotic lesions of the lumbar, upper sacral, and lower thoracic vertebral bodies include a 1.6 cm lesion at L4 and 2.6 cm lesion at the left paracentral S1-S2. No ascites. No pneumoperitoneum. Unenhanced lower thorax, abdominopelvic structures, and musculoskeleton appear otherwise grossly unremarkable. Impression: Moderate perinephric fat stranding. Differential diagnosis includes chronic medical renal disease and pyelonephritis. Uncomplicated right inguinal hernia includes an otherwise normal-appearing appendix. Several sclerotic skeletal lesions may indicate bone islands; differential diagnosis includes metastatic disease. Consider whole body bone scintigraphy, as clinically warranted.
[2018-07-08 23:33] LABS: ABSOLUTE BASOPHILS # (AUTO) 0.1 10^3/uL (0.0-0.2); ABSOLUTE EOSINOPHILS # (AUTO) 0.1 10^3/uL (0.0-0.6); ABSOLUTE LYMPHOCYTES (AUTO) 1.3 10^3/uL (0.5-4.7); ABSOLUTE NEUT (AUTO) 16.5 10^3/uL (1.7-8.2); BASOPHILS % (AUTO) 0.4 % (0-2); EOSINOPHILS % (AUTO) 0.4 % (0-6); HEMATOCRIT 45.9 % (37.9-51.0); HEMOGLOBIN 15.3 g/dL (13.5-17.0); MEAN CORPUSCULAR HEMOGLOBIN 30.9 pg (27.0-33.4); MEAN CORPUSCULAR HGB CONC 33.2 g/dL (32.0-36.0); MEAN CORPUSCULAR VOLUME 93 fl (80-97); MONOCYTES % (AUTO) 5.2 % (3-13); PLATELET COUNT 299 10^3/uL (150-450); RED BLOOD COUNT 4.94 10^6/uL (4.35-5.55); RED CELL DISTRIBUTION WIDTH 13.5 % (11.5-14.0); TOTAL CELLS COUNTED % (AUTO) 100 %
[2018-07-08 23:43] LABS: ALANINE AMINOTRANSFERASE 49 U/L (21-72); ALBUMIN 4.4 g/dL (3.5-5.0); ALKALINE PHOSPHATASE 52 U/L (38-126); ANION GAP 12 (5-19); ASPARTATE AMINO TRANSFERASE 26 U/L (17-59); BILIRUBIN,DIRECT 0.2 mg/dL (0.0-0.4); BILIRUBIN,TOTAL 0.4 mg/dL (0.2-1.3); BLOOD UREA NITROGEN 15 mg/dL (7-20); CARBON DIOXIDE 26 mmol/L (22-30); CHLORIDE 101 mmol/L (98-107); GLUCOSE 142 mg/dL (75-110); POTASSIUM 4.8 mmol/L (3.6-5.0); SODIUM 138.7 mmol/L (137-145); TOTAL PROTEIN 7.3 g/dL (6.3-8.2)
[2018-07-08 23:47] LABS: APPEARANCE,URINE SLIGHTLY-CLOUDY; BILIRUBIN,URINE NEGATIVE (NEGATIVE); COLOR,URINE YELLOW; GLUCOSE, URINE NEGATIVE (NEGATIVE); KETONES,URINE NEGATIVE (NEGATIVE); LEUKOCYTE ESTERASE,URINE SMALL (NEGATIVE); NITRITE,URINE NEGATIVE (NEGATIVE); PROTEIN,URINE NEGATIVE (NEGATIVE); URINE SPECIFIC GRAVITY 1.025
[2018-07-09] MEDS ORDERED: CEFTRIAXONE INJ 1000 MG VIAL IV ONE (00:26)
--- NOTE | 2018-07-09 00:28 | ER Document Report ---
ED General - General Chief Complaint: Flank Pain Stated Complaint: SEVERE RIGHT SIDED BACK PAIN Time Seen by Provider: 07/08/18 22:39 Mode of Arrival: Ambulatory Notes: Patient is a 57-year-old male with a past medical history of hypertension, hyperlipidemia, diabetes who presents with several hours of right flank pain. He states that the pain is a stabbing, constant, some moderate to severe pain in his right flank that does radiate into his right low groin. He states the pain started abruptly and has been ongoing since that time. Nothing improves or worsens the symptoms. He denies any history of similar pain in the past. He notes associated nausea but no vomiting. He has not seen his general doctor regarding today's concerns. He has not had any hematuria or dysuria. No fever or constitutional symptoms. TRAVEL OUTSIDE OF THE [place] IN LAST 30 DAYS: No - Related Data Allergies/Adverse Reactions: Penicillins Allergy (Verified 02/03/17 23:01) Past Medical History - General Information source: Patient - Social History Smoking Status: Never Smoker Frequency of alcohol use: None Drug Abuse: None Lives with: Spouse/Significant other Family History: Reviewed & Not Pertinent - Past Medical History Cardiac Medical History: Reports: Hx Hypertension Endocrine Medical History: Reports: Hx Diabetes Mellitus Type 2 Renal/ Medical History: Denies: Hx Peritoneal Dialysis Past Surgical History: Reports: Hx Orthopedic Surgery - neck/back, Hx Thyroid Surgery - Immunizations Hx Diphtheria, Pertussis, Tetanus Vaccination: Yes Review of Systems - Review of Systems Notes: Constitutional: Negative for fever. HENT: Negative for sore throat. Eyes: Negative for visual changes. Cardiovascular: Negative for chest pain. Respiratory: Negative for shortness of breath. Gastrointestinal: Positive for right flank pain and nausea Genitourinary: Negative for dysuria. Musculoskeletal: Negative for back pain. Skin: Negative for rash. Neurological: Negative for headaches, weakness or numbness. 10 point ROS negative except as marked above and in HPI. Physical Exam - Vital signs Vitals: Temp Pulse Resp BP Pulse Ox 98 F 72 18 125/67 95 07/08/18 21:43 07/08/18 21:43 07/08/18 21:43 07/08/18 21:43 07/08/18 21:43 Interpretation: Normal Notes: PHYSICAL EXAMINATION: GENERAL: Well-appearing, well-nourished and in no acute distress. HEAD: Atraumatic, normocephalic. EYES: Pupils equal round and reactive to light, extraocular movements intact, sclera anicteric, conjunctiva are normal. ENT: nares patent, oropharynx clear without exudates. Moderately dry mucous membranes. NECK: Normal range of motion, supple without lymphadenopathy LUNGS: Breath sounds clear to auscultation bilaterally and equal. No wheezes rales or rhonchi. HEART: Regular rate and rhythm without murmurs ABDOMEN: Soft, nontender, normoactive bowel sounds. No guarding, no rebound. No masses appreciated. Mild right flank pain to palpation EXTREMITIES: Normal range of motion, no pitting or edema. No cyanosis. NEUROLOGICAL: No focal neurological deficits. Moves all extremities spontaneously and on command. PSYCH: Normal mood, normal affect. SKIN: Warm, Dry, normal turgor, no rashes or lesions noted. Course - Re-evaluation Re-evalutation: 07/09/18 00:35 Patient presents with acute onset of right flank pain. Laboratories are notable for a leukocytosis, small amount of pyuria and bacteriuria, chemistry unremarkable. CT the abdomen pelvis obtained in triage does show perinephric fat stranding on the right side concerning for possible pyelonephritis although admittedly the patient's clinical history is somewhat atypical for this particular given his age and gender as well as the acuity of onset of pain although no kidney stone is visualized. The patient was also noted to have some incidental findings of lesions in several vertebral bodies. I have informed the patient and his of this finding as well as the need for follow -up bone scan. I have contacted the patient's primary care doctor and requested close outpatient follow-up directly as this is somewhat of an unusual picture, and the patient requires follow-up for bone scan. I have started the patient on a dose of ceftriaxone here in the emergency department and will discharge him home on cephalexin for presumed diagnosis of pyonephritis. His abdominal exam itself is extremely benign without any localized areas of tenderness, rebound or guarding. I do not suspect an acute appendicitis, biliary pathology, pancreatitis, perforation, obstruction or mesenteric ischemia. At this time will discharge with return precautions and follow-up recommendations. Verbal discharge instructions given a the bedside and opportunity for questions given. Medication warnings reviewed. Patient is in agreement with this plan and has verbalized understanding of return precautions and the need for primary care follow-up in the next 24-72 hours. - Vital Signs Vital signs: Temp Pulse Resp BP Pulse Ox 98 F 72 18 125/67 95 07/08/18 21:43 07/08/18 21:43 07/08/18 21:43 07/08/18 21:43 07/08/18 21:43 - Laboratory Result Diagrams: 07/08/18 22:50 07/08/18 22:50 Laboratory results interpreted by me: 07/08/18 07/08/18 07/08/18 22:50 22:50 22:50 WBC 19.0 H Seg Neutrophils % 87.0 H Lymphocytes % 7.0 L Absolute Neutrophils 16.5 H Glucose 142 H Urine Urobilinogen 2.0 H Ur Leukocyte Esterase SMALL H Urine Ascorbic Acid 20 H - Diagnostic Test Radiology reviewed: Reports reviewed Discharge - Discharge Clinical Impression: Right flank pain, sclerotic bone lesions Leukocytosis Qualifiers: Leukocytosis type: unspecified Qualified Code(s): D72.829 - Elevated white blood cell count, unspecified Condition: Good Disposition: HOME, SELF-CARE Additional Instructions: Your seen today for right flank pain. Your CT scan does show some inflammation around your right kidney and suggest a possible infection. Given started on antibiotics here in the emergency department and will continue on them for the next 7 days. For your pain: Take ibuprofen 600 mg and acetaminophen 1000 mg every 6 hours together as needed for pain. If this does not control your pain you may take 15 mg of oral morphine every 4 hours as needed. Please be very careful about using the oral morphine and only use this for severe pain. Please follow close with Dr. Esposito who I have contacted to follow-up in office. He states please contact the office on Thursday and he will see you then. As we have discussed the CT scan also had an incidental finding of several lesions in her spine. These are likely not cancerous however a bone scan does need to be completed to further clarify. Return if you develop fever greater than 100.4 F, worsening pain, persistent vomiting, pass out, or have any other symptoms that are worrisome to you. Prescriptions: Morphine Sulfate [Morphine Ir 15 mg Tablet] 15 mg PO Q6HP PRN #12 tablet PRN Reason: Cephalexin Monohydrate [Keflex 500 mg Capsule] 500 mg PO Q6H 7 Days capsule Ondansetron [Zofran Odt 4 mg Tablet] 1 - 2 tab PO Q4H PRN #15 tab.rapdis PRN Reason: For Nausea/Vomiting Referrals: ERIN ESPOSITO MD [Primary Care Provider] - 07/12/18
[2018-07-09] MEDS ORDERED: MORPHINE SULFATE IR 15 MG TABLET PO ONE (00:40)
[2018-07-09 04:02] VITALS: BP 117/72
== END 2018-07-09 01:55 | disposition home or self-care (01) ==
LOC: ER 21:43
DX: N39.0 Urinary tract infection, site not specified (principal); R10.9 Unspecified abdominal pain; M89.9 Disorder of bone, unspecified; I10 Essential (primary) hypertension; E11.9 Type 2 diabetes mellitus without complications; R11.0 Nausea; D72.829 Elevated white blood cell count, unspecified; Z88.0 Allergy status to penicillin
CPT/HCPCS: 99284; 96375; 96365; 36415; 87086; 85025; 80053; 81001; 76380; J1885; J2270; J0696; J2405; A9270

== ENCOUNTER → 2018-07-16 | Outpatient (CLI) | payer MEDICARE, MEDICAID ==
--- NOTE | 2018-07-16 14:22 | RADIOLOGY REPORT (SQ) ---
EXAM DESCRIPTION: NM WHOLE BODY BONE SCAN COMPLETED DATE/TIME: 07/16/2018 12:59 pm REASON FOR STUDY: DISORDER OF BONE, LOW BACK PAIN, BONE LESION M89.9 DISORDER OF BONE, UNSPECIFIED COMPARISON: CT 07/08/2018 RADIONUCLIDE AND DOSE: 21.8 millicuries Tc99m MDP. The route of agent administration: Intravenous. ADDITIONAL DRUGS AND DOSES: None. TECHNIQUE: Routine delayed images at 3 hour post radionuclide injection acquired of the bony skeleto n including anterior and posterior whole-body projections and additional focused images as needed. LIMITATIONS: None. FINDINGS: BONES: Increased uptake left sternoclavicular joint, both shoulders, most consistent with degenerative change. Mild uptake posteriorly in lumbar spine pattern consistent with degenerative ch braxton. KIDNEYS: Symmetric excretion without obstruction. OTHER: No other significant finding. IMPRESSION: Degenerative change. COMMENT: Quality measure 147: Current bone scan is compared with any available plain radiographs, p rior bone scans, and CT/MRI. TECHNICAL DOCUMENTATION: JOB ID: [id number] [employer]- All Rights Reserved Reading location - IP/workstation name: [email or web address]
== END ==
LOC: RAD 08:28
PROVIDERS: ATTEND Family Medicine
DX: M89.9 Disorder of bone, unspecified (principal); M54.5 Low back pain
CPT/HCPCS: 78306; A9561; Q9969

== ENCOUNTER → 2018-08-06 | Outpatient (CLI) | payer MEDICARE, MEDICAID ==
[2018-08-06 14:02] LABS: ALANINE AMINOTRANSFERASE 31 U/L (21-72); ALBUMIN 4.3 g/dL (3.5-5.0); ALKALINE PHOSPHATASE 55 U/L (38-126); ANION GAP 13 (5-19); ASPARTATE AMINO TRANSFERASE 20 U/L (17-59); BILIRUBIN,DIRECT 0.2 mg/dL (0.0-0.4); BLOOD UREA NITROGEN 18 mg/dL (7-20); CALCIUM 9.5 mg/dL (8.4-10.2); CARBON DIOXIDE 30 mmol/L (22-30); CHLORIDE 99 mmol/L (98-107); CHOLESTEROL 97.58 mg/dL (0-200); GLUCOSE 104 mg/dL (75-110); POTASSIUM 5.3 mmol/L (3.6-5.0); SODIUM 141.7 mmol/L (137-145); TOTAL PROTEIN 7.2 g/dL (6.3-8.2); TRIGLYCERIDES 67 mg/dL (<150)
[2018-08-06 14:13] LABS: DIRECT LDL 48 mg/dL (<100)
== END ==
LOC: OD 12:22
PROVIDERS: ATTEND Internal Medicine
DX: I35.1 Nonrheumatic aortic (valve) insufficiency (principal); I10 Essential (primary) hypertension; E78.49 Other hyperlipidemia; E11.9 Type 2 diabetes mellitus without complications; R07.9 Chest pain, unspecified; Z79.899 Other long term (current) drug therapy
CPT/HCPCS: 36415; 80053; 80061; 83036

== ENCOUNTER → 2018-12-10 | Outpatient (CLI) | payer MEDICARE, MEDICAID ==
[2018-12-10 11:02] LABS: ALANINE AMINOTRANSFERASE 21 U/L (21-72); ALBUMIN 4.6 g/dL (3.5-5.0); ALKALINE PHOSPHATASE 60 U/L (38-126); ASPARTATE AMINO TRANSFERASE 25 U/L (17-59); BILIRUBIN,DIRECT 0.4 mg/dL (0.0-0.4); BILIRUBIN,TOTAL 0.9 mg/dL (0.2-1.3); CHOLESTEROL 107.18 mg/dL (0-200); TOTAL PROTEIN 7.2 g/dL (6.3-8.2); TRIGLYCERIDES 49 mg/dL (<150)
[2018-12-10 11:15] LABS: DIRECT LDL 57 mg/dL (<100)
== END ==
LOC: OD 09:28
PROVIDERS: ATTEND Specialist
DX: I35.1 Nonrheumatic aortic (valve) insufficiency (principal); I10 Essential (primary) hypertension; E78.49 Other hyperlipidemia; E11.9 Type 2 diabetes mellitus without complications; M48.00 Spinal stenosis, site unspecified; R07.9 Chest pain, unspecified; E78.5 Hyperlipidemia, unspecified; Z79.899 Other long term (current) drug therapy
CPT/HCPCS: 36415; 80061; 80076; 83036

== ENCOUNTER 2019-01-04 05:19 | Day surgery (SDC) | payer MEDICARE, MEDICAID ==
--- NOTE | 2018-12-28 11:41 | RADIOLOGY REPORT (SQ) ---
EXAM DESCRIPTION: CHEST PA/LATERAL COMPLETED DATE/TIME: 12/28/2018 11:28 am REASON FOR STUDY: PRE-OP COMPARISON: 10/31/2009 EXAM PARAMETERS: NUMBER OF VIEWS: two views TECHNIQUE: Digital Frontal and Lateral radiographic views of the chest acquired. RADIATION DOSE: NA LIMITATIONS: none FINDINGS: LUNGS AND PLEURA: No opacities, masses or pneumothorax. No pleural effusion. MEDIASTINUM AND HILAR STRUCTURES: No masses or contour abnormalities. HEART AND VASCULAR STRUCTURES: Heart normal size. No evidence for failure. BONES: No acute findings. HARDWARE: None in the chest. OTHER: Partially visualized hardware anterior fusion lower cervical spine. IMPRESSION: 1. No significant interval changes since the prior examination dated 10/31/2009. No acu te findings. TECHNICAL DOCUMENTATION: JOB ID: [id number] [employer]- All Rights Reserved Reading location - IP/workstation name: [email or web address]
[2018-12-28 11:49] LABS: HEMATOCRIT 42.6 % (37.9-51.0); HEMOGLOBIN 14.6 g/dL (13.5-17.0); MEAN CORPUSCULAR HEMOGLOBIN 31.7 pg (27.0-33.4); MEAN CORPUSCULAR HGB CONC 34.4 g/dL (32.0-36.0); MEAN CORPUSCULAR VOLUME 92 fl (80-97); PLATELET COUNT 222 10^3/uL (150-450); RED BLOOD COUNT 4.63 10^6/uL (4.35-5.55); RED CELL DISTRIBUTION WIDTH 13.2 % (11.5-14.0); WHITE BLOOD COUNT 7.7 10^3/uL (4.0-10.5)
[2018-12-28 12:12] LABS: ANION GAP 8 (5-19); BLOOD UREA NITROGEN 18 mg/dL (7-20); CARBON DIOXIDE 30 mmol/L (22-30); CHLORIDE 102 mmol/L (98-107); GLUCOSE 123 mg/dL (75-110); SODIUM 139.7 mmol/L (137-145)
--- NOTE | 2018-12-28 17:19 | EKG REPORT ---
SEVERITY:- OTHERWISE NORMAL ECG - SINUS RHYTHM BORDERLINE LEFT AXIS DEVIATION : Confirmed by: Dimitri Salazar 28-Dec-2018 17:18:26
[~2019-01-04 05:19] MED LIST: LACTATED RINGERS 1000 ML IV PRN; LIDOCAINE 0.5% INJ-PF (5 MG/ML) 50 ML SDV SUBCUT PRN; VANCOMYCIN HCL 500 MG in DEXTROSE 5%-WATER 100 ML IV PRN
[2019-01-04] MEDS ORDERED: FENTANYL CITRATE INJ/PF 100 MCG/2 ML AMPUL ONE (06:59)
[2019-01-04] MEDS ORDERED: MIDAZOLAM 2 MG/2 ML INJ ONE (06:59)
[2019-01-04] MEDS ORDERED: DEXAMETHASONE SOD PHOSPHATE INJ 4 MG/1 ML VIAL ONE (07:00)
[2019-01-04] MEDS ORDERED: PROPOFOL INJ 200 MG/20 ML VIAL IV ONE (07:00)
[2019-01-04] MEDS ORDERED: HYDROMORPHONE HCL INJ/PF 2 MG/ML AMPULE ONE (07:00)
[2019-01-04] MEDS ORDERED: ONDANSETRON HCL INJ/PF 4 MG/2 ML SDV ONE (07:00)
[2019-01-04] MEDS ORDERED: ACETAMINOPHEN 1,000 MG/100 ML RTUPB IV ONE (07:00)
[2019-01-04] MEDS ORDERED: BUPIVACAINE HCL 0.25 % INJ/PF (2.5 MG/1 ML) 30 ML VIAL ONE (07:08)
[2019-01-04] MEDS ORDERED: BACITRACIN INJ 50,000 UNIT VIAL ONE (07:08)
[2019-01-04] MEDS ORDERED: LIDOCAINE 0.5% INJ-PF (5 MG/ML) 50 ML SDV ONE (07:08)
[2019-01-04] MEDS ORDERED: METOCLOPRAMIDE HCL INJ/PF 10 MG/2 ML SDV ONE (07:15)
[2019-01-04] MEDS ORDERED: FAMOTIDINE INJ/PF 20 MG/2 ML SDV IV ONE (07:16)
[2019-01-04] MEDS ORDERED: EPHEDRINE SULFATE INJ 50 MG/1 ML AMPULE ONE (08:12)
[2019-01-04] MEDS ORDERED: MORPHINE SULFATE 10 MG/ML INJ IV PRN (08:21)
[2019-01-04] MEDS ORDERED: DIPHENHYDRAMINE HCL 50 MG/ML VIAL IV PRN (08:21)
[2019-01-04] MEDS ORDERED: MEPERIDINE HCL/PF INJ 25 MG/1 ML DISP.SYRIN IV PRN (08:21)
[2019-01-04] MEDS ORDERED: PROMETHAZINE HCL INJ 25 MG/1 ML VIAL IV PRN (08:21)
[2019-01-04] MEDS ORDERED: FENTANYL CITRATE INJ/PF 100 MCG/2 ML AMPUL IV PRN ×3 (08:21)
[2019-01-04] MEDS ORDERED: ONDANSETRON HCL INJ/PF 4 MG/2 ML SDV IV PRN (08:21)
--- NOTE | 2019-01-04 09:26 | Discharge Summary ---
Discharge Summary (SDC) - Discharge Final Diagnosis: #1 symptomatic right inguinal hernia. 2. Diabetes mellitus type 2. 3. Hypertension. Date of Surgery: 01/04/19 Discharge Date: 01/04/19 Condition: Good Treatment or Instructions: Discharge home [after recovery per ASU criteria]. Diet , renal as tolerated, when fully awake advance as tolerated. Activities within moderation encouraged. Follow up in my office by appointment in about [1 week]. Call for appointment. Leave wounds [covered], [keep clean and dry, until office visit in 1 week]. Hold of on school/work [until evaluation in office]. Meds per med rec. Percocet. May shower [in 48 hrs], [try to keep operated area as dry as possible]. Prescriptions: Oxycodone HCl/Acetaminophen [Percocet 5-325 mg Tablet] 1 tab PO ASDIR PRN #15 tab PRN Reason: Referrals: ERIN ESPOSITO MD [Primary Care Provider] - Discharge Diet: Other (Comments) - Diabetic. Respiratory Treatments at Home: Deep Breathing/Coughing Discharge Activity: Activity As Tolerated, No Lifting Over 10 Pounds Report the Following to Your Physician Immediately: Shortness of Breath, Unusual Bleeding
--- NOTE | 2019-01-04 09:32 | Operative Report ---
Operative Report DATE OF SURGERY: 01/04/19 PREOPERATIVE DIAGNOSIS: #1 symptomatic right inguinal hernia. 2. Diabetes adenike litus type 2. 3. Hypertension. POSTOPERATIVE DIAGNOSIS: #1 symptomatic right inguinal hernia. 2. Diabetes mellitus type 2. 3. Hypertension. OPERATION: Repair of right inguinal hernia, indirect, with mesh. Open. Resection of lipoma of cord. SURGEON: JASON NEGRETE RED LEAD BURNER: None. ANESTHESIA: GA TISSUE REMOVED OR ALTERED: Lipoma of cord. COMPLICATIONS: None. ESTIMATED BLOOD LOSS: 10 mL. INTRAOPERATIVE FINDINGS: Of a substantial indirect hernia sac containing appendix appendix normal in appearance. A lateral lipoma of the cord was and this was resected. Satisfactory retroperitoneal space was dissected and a Prolene hernia system mesh deployed satisfactorily. The ilioinguinal and genitofemoral nerves were identified and protected and locally anesthetized. PROCEDURE: This patient was evaluated in the office for a right inguinal hernia which is symptomatic and affecting activities of daily living. The right, probably indirect inguinal hernia was elucidated on examination. Based on the findings repair was recommended. Use of mesh discussed. Risks, benefits, expected outcome and alternatives gone over the patient. He wishes to proceed. After obtaining informed consent and going over the procedure with [the patient and his family], he was taken to the operating room, he was anesthetized and intubated. The abdomen was prepped and draped in the usual sterile fashion. After the universal timeout, in which it was verified that the patient received IV antibiotic, the procedure commenced. Headlight loupe magnification were utilized for optimal visualization. A transverse incision was made in the right lower abdomen abdominal, groin area, just above the pubic tubercle. 6 cm in length.Local, regional anesthesia was infiltrated, just before incision.. Incision was made with a [15 blade scalpel]. Dissection now proceeded through the subcutaneous tissue down to the external oblique aponeurosis. The external ring was identified and the external oblique opened in the line of its fibers. The inguinal canal was thus displayed. Dissection was facilitated by the use a headlight and using loupe magnification. The spermatic cord was dissected off the pubic tubercle and surrounded with a moist Tong drain, the cremasteric fascia was now incised longitudinally revealing the contents of the spermatic cord. The sac was readily evident and this was grasped with a hemostat. It was now dissected in a retrograde fashion into the retroperitoneal space. It was now reduced within the the preperitoneal space. There is separate, laterally oriented lipoma of the cord was dissected to just above the preperitoneal space., Divided and ligated. The remnant sent for pathology. The preperitoneal space was now developed circumferentially. It easily accommodated a sponge which was removed. Hemostasis was checked for and ensured there in. The space between the external and internal oblique aponeuroses was now developed to accommodate the external portion of the mesh. Having done so a Prolene hernia system mesh was now folded, in the refinery operator polymerization plant's approved fashion and inserted into the preperitoneal space. The internal portion was deployed flat in the preperitoneal space the external portion was unfolded and tucked beneath the external oblique. Secured with a 0 PDS suture to the internal oblique superiorly, the fascia adjacent to the pubic tubercle medially, inferiorly it was split up to the connector, the the split mesh was now used to surround the spermatic cord. It was reapproximated with a suture of 0 PDS. 0 PDS was now used to approximate the inferior border of the mesh to the shelving edge of Poupart's ligament with a single suture. Laterally the mesh was tucked beneath the external oblique. The external oblique was now reconstituted using a continuous suture of 3-0 PDS. 3-0 PDS interrupted sutures were used to approximate the subcutaneous tissues after removing the Tong drain. The skin was closed using a continuous subcuticular suture of 4-0 Monocryl reinforced with Steri-Strips over benzoin. Copies dictated operative report to Dr. Jason Jewell MD. R
[2019-01-04 11:42] VITALS: BP 121/95
[2019-01-04] MEDS ORDERED: ROCURONIUM BROMIDE INJ 50 MG/5 ML VIAL IV ONE (12:01)
[2019-01-04] MEDS ORDERED: SUCCINYLCHOLINE CHLORIDE INJ 200 MG/10 ML VIAL ONE (12:01)
== END 2019-01-04 11:30 | disposition home or self-care (01) ==
LOC: OROUT 05:19
PROVIDERS: ATTEND Surgery
DX: K40.90 Unilateral inguinal hernia, without obstruction or gangrene, not specified as recurrent (principal); D17.6 Benign lipomatous neoplasm of spermatic cord; E11.9 Type 2 diabetes mellitus without complications; I10 Essential (primary) hypertension; N40.0 Benign prostatic hyperplasia without lower urinary tract symptoms; Z86.39 Personal history of other endocrine, nutritional and metabolic disease; I38 Endocarditis, valve unspecified; Z86.14 Personal history of Methicillin resistant Staphylococcus aureus infection; Z79.899 Other long term (current) drug therapy; Z86.010 Personal history of colon polyps; Z79.82 Long term (current) use of aspirin; Z79.84 Long term (current) use of oral hypoglycemic drugs
CPT/HCPCS: 93010; 93005; 36415; 82962; 85027; 80048; 88304 ×2; 71046; 49505; 55520; C1781; J2250; J3490 ×4; J1100; J2765; J1170; J0330; J2405; J3370; J2704; S0028; J0131; 830; J3010

== ENCOUNTER → 2019-09-13 | Outpatient (CLI) | payer MEDICAID, MEDICARE ==
--- NOTE | 2019-09-15 00:21 | XCELERA REPORT ---
[address] [address] Transthoracic Echocardiogram Report Name: KRYSTLE DELEON Age: 58 yrs Gender: Male : 1960 Patient Status: Outpatient Patient Location: Study Date: 09/13/2019 03:51 PM Height: 71 in Weight: 216 lb BSA: 2.2 m2 Procedure: A two-dimensional transthoracic echocardiogram with color flow and Doppler was performed. Study Quality: Technically suboptimal. Reason For Study: CHEST PAIN History: CHEST PAIN. Ordering Physician: YOJANA MOREIRA Performed By: Floresita Martinez Interpretation Summary The left ventricle is normal in size. There is normal left ventricular wall thickness. LV EF is > THAN 65% Left ventricular systolic function is normal. Doppler measurements suggest impaired left ventricular relaxation, which is associated with grade I/IV or mild diastolic dysfunction The left ventricular wall motion is normal. There is no thrombus. Cannot assess ASD ,VSD , or PFO. The right ventricle is grossly normal size. The right ventricle is not well visualized secondary to technical limitations The right atrium is normal. The left atrial size is normal. There is no evidence of mitral valve prolapse. There is no vegetation seen on the mitral valve. There is a trace amount of mitral regurgitation There is no aortic valvular vegetation. There is aortic sclerosis without aortic stenosis. There is no LVOT obstruction. No aortic regurgitation is present. There is no tricuspid stenosis. There is a trace amount of tricuspid regurgitation Tricuspid regurgitation jet envelope not well defined to measure RV systolic pressure accurately. There is no pulmonic valvular stenosis. There is a trace amount of pulmonic regurgitation The aortic root is not well visualized but is probably normal size. The inferior vena cava appeared normal and decreased > 50% with respiration (RAP 5-10 mmHg) The inferior vena cava was not well visualized There is no pericardial effusion. MMode/2D Measurements & Calculations RVDd: 2.9 cm LVIDd: 5.1 cm FS: 42.4 % Ao root diam: 3.4 cm IVSd: 1.1 cm LVIDs: 2.9 cm EDV(Teich): 124.6 ml Ao root area: 8.8 cm2 LVPWd: 1.0 cm ESV(Teich): 33.5 ml EF(Teich): 73.1 % Doppler Measurements & Calculations MV E max luigi: MV dec slope: Ao V2 max: LV V1 max P.2 cm/sec 371.1 cm/sec2 130.2 cm/sec 3.8 mmHg MV A max luigi: MV dec time: 0.22 sec Ao max PG: LV V1 max: 109.3 cm/sec 6.8 mmHg 97.2 cm/sec MV E/A: 0.73 PA V2 max: 101.1 cm/sec PA max P.1 mmHg Left Ventricle The left ventricle is normal in size. There is normal left ventricular wall thickness. The left ventricular ejection fraction is normal. LV EF is > THAN 65%. Left ventricular systolic function is normal. Doppler measurements suggest impaired left ventricular relaxation, which is associated with grade I/IV or mild diastolic dysfunction. The left ventricular wall motion is normal. There is no thrombus. Cannot assess ASD ,VSD , or PFO. Right Ventricle The right ventricle is grossly normal size. The right ventricle is not well visualized secondary to technical limitations. Atria The right atrium is normal. The left atrial size is normal. Mitral Valve There is no evidence of mitral valve prolapse. There is no vegetation seen on the mitral valve. There is no mitral valve stenosis. There is a trace amount of mitral regurgitation. Aortic Valve There is no aortic valvular vegetation. There is aortic sclerosis without aortic stenosis. There is no LVOT obstruction. No aortic regurgitation is present. Tricuspid Valve There is no tricuspid stenosis. There is a trace amount of tricuspid regurgitation. Tricuspid regurgitation jet envelope not well defined to measure RV systolic pressure accurately. Pulmonic Valve There is no pulmonic valvular stenosis. There is a trace amount of pulmonic regurgitation. Great Vessels The aortic root is not well visualized but is probably normal size. The inferior vena cava appeared normal and decreased > 50% with respiration (RAP 5-10 mmHg). The inferior vena cava was not well visualized. Effusions There is no pericardial effusion. : YOJANA MOREIRA Lakshmi
== END ==
LOC: SP 14:31
PROVIDERS: ATTEND Specialist
DX: R07.9 Chest pain, unspecified (principal)
CPT/HCPCS: 93306

== ENCOUNTER → 2019-09-14 | Outpatient (CLI) | payer MEDICAID, MEDICARE ==
[~2019-09-14] MED LIST changes: -LACTATED RINGERS 1000 ML IV PRN; -LIDOCAINE 0.5% INJ-PF (5 MG/ML) 50 ML SDV SUBCUT PRN; +REGADENOSON INJ 0.4 MG/5 ML DISP.SYRIN IV ONE; -VANCOMYCIN HCL 500 MG in DEXTROSE 5%-WATER 100 ML IV PRN
--- NOTE | 2019-09-16 23:20 | DRAGON STRESS TEST REPORT ---
Intravenous Lexiscan Cardiolite stress test using single photon emmision computerized tomography. Date of [id number]/4/2019. Ordering Provider: Dr. Yojana Watson Patient's status Outpatient. Indication: Chest pain. Coronary risk factors: Age, diabetes mellitus, hypertension, and dyslipidemia. Resting EKG: Sinus Rhythm. Poor R wave progression leads V1 to V6. No acute changes. Stress EKG: No changes of ischemia. The patient had no chest pain or discomfort, and there were no arrhythmias seen. Reason for termination: Protocol. Conclusions: Normal EKG and hemodynamic response to IV Lexiscan. Nuclear data: At rest the patient was given 14.73 millicuries of technetium 99m sestamibi injected intravenously. As per protocol rest non gated SPECT images were obtained. Subsequently the patient was given intravenous Lexiscan at a dose of 0.4 mg in 5 mL intravenously, followed by flush with normal saline. Subsequently the stress dose of 42.8 millicuries of technetium 99m sestamibi was injected intravenously. As per protocol stress gated images were obtained. Nuclear interpretation: Review of images showed that all segments of the myocardium had normal perfusion at rest, and normal perfusion post stress with IV Lexiscan. All segments of the myocardium had normal motion, contraction, and thickening by gated study. T. I D. ratio was normal at 0.99. There is no transient ischemic dilatation of the left ventricle. Computer read rest, and stress left ventricular ejection fraction were 61 %, and 54 %, respectively. Visually both the stress and rest ejection fractions were normal, and greater than 60 %. Conclusion: 1. There is no scintigraphic evidence of Lexiscan induced myocardial ischemia. 2. There is no scintigraphic evidence of myocardial infarction/scar. Recommendations: Aggressive risk factor modification, and treating the underlying co- morbidities. [facility]
== END ==
LOC: RAD 07:22
PROVIDERS: ATTEND Specialist
DX: R07.9 Chest pain, unspecified (principal)
CPT/HCPCS: 93017; 78452; A9500; J2785; Q9969

== ENCOUNTER → 2020-01-16 | Outpatient (CLI) | payer MEDICARE, OTHER ==
--- NOTE | 2020-01-16 11:53 | RADIOLOGY REPORT (SQ) ---
EXAM DESCRIPTION: LUMBAR SPINE COMPLETE IMAGES COMPLETED DATE/TIME: 01/16/2020 11:43 am REASON FOR STUDY: LOW BACK PAIN; RT FLANK PAIN M54.5 LOW BACK PAIN R10.9 UNSPECIFIED ABDOMINAL NI N COMPARISON: CT abdomen dated 07/08/2018 NUMBER OF VIEWS: Five views including obliques. TECHNIQUE: AP, lateral, oblique, and sacral radiographic images acquired of the lumbar spine. LIMITATIONS: None. FINDINGS: MINERALIZATION: Normal. SEGMENTATION: Normal. No transitional anatomy. ALIGNMENT: There is scoliosis with concavity toward the right. VERTEBRAE: Maintained height. No fracture or worrisome bone lesion. Stable sclerotic lesion in the posterior aspect of L4. DISCS: Multilevel disc space narrowing with endplate sclerosis. Endplate sclerosis. Multiple anteri or and lateral osteophytes. POSTERIOR ELEMENTS: Pedicles and facets are intact. No pars defect or posterior arch defects. Facet arthropathy is present. HARDWARE: None in the spine. PARASPINAL SOFT TISSUES: Normal. PELVIS: Intact as visualized. No fractures or worrisome bone lesions. SI joints intact. OTHER: No other significant finding. IMPRESSION: SPONDYLOSIS WITHOUT BONE LESION OR FRACTURE. TECHNICAL DOCUMENTATION: JOB ID: [id number] [employer]- All Rights Reserved Reading location - IP/workstation name: [email or web address]
--- NOTE | 2020-01-16 11:54 | RADIOLOGY REPORT (SQ) ---
EXAM DESCRIPTION: KUB IMAGES COMPLETED DATE/TIME: 01/16/2020 11:45 am REASON FOR STUDY: LOW BACK PAIN; RT FLANK PAIN M54.5 LOW BACK PAIN R10.9 UNSPECIFIED ABDOMINAL NI N COMPARISON: 10/01/2016 NUMBER OF VIEWS: One view. TECHNIQUE: Supine radiographic image of the abdomen acquired. LIMITATIONS: None. FINDINGS: BOWEL GAS PATTERN: Normal bowel gas pattern. No dilated loops. CALCIFICATIONS: Multiple phleboliths in the pelvis. Distal right ureteral stone would be hard to exc lude. SOFT TISSUES: No gross mass or suggestion of organomegaly. HARDWARE: None in the abdomen. BONES: No acute fracture. No worrisome bone lesions. OTHER: No other significant finding. IMPRESSION: Multiple phleboliths like densities in the pelvis. Distal right ureteral stone would be hard to exclude. TECHNICAL DOCUMENTATION: JOB ID: [id number] 2010 [employer]- All Rights Reserved Reading location - IP/workstation name: [email or web address]
== END ==
LOC: RAD 11:16
PROVIDERS: ATTEND Family Medicine
DX: M54.5 Low back pain (principal); M47.896 Other spondylosis, lumbar region; R10.9 Unspecified abdominal pain
CPT/HCPCS: 72110; 74018

== ENCOUNTER → 2020-04-05 | Outpatient (CLI) | payer MEDICARE, OTHER ==
--- NOTE | 2020-04-05 14:37 | RADIOLOGY REPORT (SQ) ---
EXAM DESCRIPTION: MRI LUMBAR SPINE WITHOUT IMAGES COMPLETED DATE/TIME: 04/05/2020 1:35 pm REASON FOR STUDY: M51.36 OTHER INTERVERTEBRAL DISC DEGENERATION, LUMBAR REGION M50.30 OTHER CERVICA L DISC DEGENERATION, UNSP CERVICAL REGIO M51.36 OTHER INTERVERTEBRAL DISC DEGENERATION, LUMBAR REGIO N COMPARISON: None. TECHNIQUE: Sagittal and Axial imaging includes T1, T2, STIR and gradient echo sequences. Coronal T2/ HASTE imaging. LIMITATIONS: None. FINDINGS: VISUALIZED UPPER ABDOMEN: Limited evaluation. No acute or suspicious findings suggested. SEGMENTATION: No transitional anatomy. The lowest well-developed disc space is labeled L5-S1. ALIGNMENT: Levoscoliosis. VERTEBRAE: Intact. There is narrowing of the right side of the L2 and L3 vertebrae because of the sc oliosis. BONE MARROW: Normal. No marrow replacement or reactive changes. DISC SIGNAL: There is decreased T2 signal intensity in all the lumbar discs. All the disc spaces are narrowed to some degree. POSTERIOR ELEMENTS: Generally intact. No pars defect evident. HARDWARE: None in the spine. CORD AND CONUS: Normal in size and signal intensity. Conus at the T12 level. SOFT TISSUES: No aortic aneurysm seen. No bulky retroperitoneal adenopathy or mass. No paraspinal mas s or fluid. L1-L2: Concentric disc bulging. Facet and ligament hypertrophy. Mild central canal stenosis right f oraminal stenosis. L2-L3: Concentric disc bulge. Facet and ligament hypertrophy. Mild central canal stenosis. No sign ificant foraminal stenosis. L3-L4: Concentric disc bulging asymmetric to the right. Facet and ligament hypertrophy. Moderate ce ntral canal stenosis. The bulging disc may contact the exiting nerve root on the right outside of th e neural foramen. L4-L5: Concentric disc bulging that is somewhat asymmetrical to the left. Facet and ligament hypertr ophy. Moderate central canal stenosis left foraminal stenosis. L5-S1: Left paracentral/ foraminal disc protrusion and facet and ligament hypertrophy results in cent ral canal stenosis with displacement of the traversing nerve root and left foraminal stenosis. LOWER THORACIC: Incompletely imaged. No stenosis seen. SACRUM: Visualized upper sacrum intact. OTHER: No other significant findings. IMPRESSION: Multilevel disc bulging as described. The more significant findings are from L3-S1. Th ere appears to be disc protrusion on the left at L5-S1 as described. TECHNICAL DOCUMENTATION: JOB ID: [id number] 2010 [employer]- All Rights Reserved Reading location - IP/workstation name: [email or web address]
--- NOTE | 2020-04-05 15:03 | RADIOLOGY REPORT (SQ) ---
EXAM DESCRIPTION: MRI CERVICAL SPINE WITHOUT IMAGES COMPLETED DATE/TIME: 04/05/2020 1:35 pm REASON FOR STUDY: M50.30 OTHER CERVICAL DISC DEGENERATION, UNSPECIFIED CERVICAL REGION M50.30 OTHER CERVICAL DISC DEGENERATION, UNSP CERVICAL REGIO M51.36 OTHER INTERVERTEBRAL DISC DEGENERATION, LUMB AR REGION COMPARISON: 02/11/2014 TECHNIQUE: Sagittal and Axial imaging includes T1, T2, STIR and gradient echo sequences. LIMITATIONS: None. FINDINGS: ALIGNMENT: Normal. VERTEBRAE: Intact. BONE MARROW: Normal. No marrow replacement or reactive changes. DISCS: Normal. No significant abnormal signal or loss of height. HARDWARE: Anterior plate from C3-C6 with screws into the vertebral bodies and disc implants. CORD AND BASE OF BRAIN: Normal in size and signal intensity. SOFT TISSUES: No soft tissue masses. C1-C2: No significant spinal stenosis. C2-C3: No significant spinal stenosis or exit foraminal stenosis. C3-C4: No significant spinal stenosis or exit foraminal stenosis. C4-C5: No significant spinal stenosis or exit foraminal stenosis. C5-C6: No significant spinal stenosis or exit foraminal stenosis. C6-C7: Narrowing of the right neural foramen secondary to hypertrophic facet changes. C7-T1: No significant spinal stenosis or exit foraminal stenosis. UPPER THORACIC: Incompletely imaged. No significant spinal stenosis or exit foraminal stenosis. OTHER: No other significant finding. IMPRESSION: Prior ACDF from C3-C6. There is narrowing of the right neural foramen at C6-7 secondary to hypertrophic facet changes. TECHNICAL DOCUMENTATION: JOB ID: [id number] 2010 [employer]- All Rights Reserved Reading location - IP/workstation name: [email or web address]
== END ==
LOC: RAD 11:41
PROVIDERS: ATTEND Pain Medicine Pain Medicine
DX: M51.36 Other intervertebral disc degeneration, lumbar region (principal); M50.30 Other cervical disc degeneration, unspecified cervical region
CPT/HCPCS: 72141; 72148

== ENCOUNTER 2020-04-07 19:20 | Emergency (ER) | payer MEDICARE, OTHER ==
--- NOTE | 2020-04-07 21:03 | ER Document Report ---
ED Medical Screen (RME) - General Chief Complaint: Flank Pain Stated Complaint: RIGHT SIDED FLANK PAIN Time Seen by Provider: 04/07/20 20:45 Primary Care Provider: LYNN GIMENEZ MD [Primary Care Provider] - Follow up as needed Notes: Patient is a 59-year-old male who presents the emergency department with a chief complaint of right flank pain. Patient states that his pain started this morning. Patient has history of kidney stones in the past. Patient states that this feels like it may be a kidney stone. Exam: Right CVA tenderness. I have greeted and performed a rapid initial assessment of this patient. A comprehensive ED assessment and evaluation of the patient, analysis of test results and completion of medical decision making process will be conducted by an additional ED providers. TRAVEL OUTSIDE OF THE [place] IN LAST 30 DAYS: No - Related Data Allergies/Adverse Reactions: Penicillins Allergy (Verified 01/04/19 05:55) Past Medical History - Social History Chew tobacco use (# tins/day): No Frequency of alcohol use: None Drug Abuse: None - Past Medical History Cardiac Medical History: Reports: Hx Hypertension Denies: Hx Coronary Artery Disease, Hx Heart Attack Pulmonary Medical History: Denies: Hx Asthma, Hx Bronchitis, Hx COPD, Hx Pneumonia Neurological Medical History: Denies: Hx Cerebrovascular Accident, Hx Seizures Endocrine Medical History: Reports: Hx Diabetes Mellitus Type 2 Renal/ Medical History: Denies: Hx Peritoneal Dialysis Musculoskeltal Medical History: Reports Hx Arthritis - BACK Past Surgical History: Reports: Hx Orthopedic Surgery - neck/back, Hx Thyroid Surgery - Immunizations Hx Diphtheria, Pertussis, Tetanus Vaccination: No - UNKNOWN Physical Exam - Vital signs Vitals: Temp Pulse Resp BP Pulse Ox 98.6 F 86 16 117/53 L 97 04/07/20 19:31 04/07/20 19:31 04/07/20 19:31 04/07/20 19:31 04/07/20 19:31 Course - Vital Signs Vital signs: Temp Pulse Resp BP Pulse Ox 98.6 F 86 16 117/53 L 97 04/07/20 19:31 04/07/20 19:31 04/07/20 19:31 04/07/20 19:31 04/07/20 19:31 Doctor's Discharge - Discharge Referrals: LYNN GIMENEZ MD [Primary Care Provider] - Follow up as needed
[2020-04-07 21:19] LABS: ABSOLUTE BASOPHILS # (AUTO) 0.1 10^3/uL (0.0-0.2); ABSOLUTE EOSINOPHILS # (AUTO) 0.1 10^3/uL (0.0-0.6); ABSOLUTE LYMPHOCYTES (AUTO) 1.3 10^3/uL (0.5-4.7); ABSOLUTE MONOCYTES (AUTO) 0.7 10^3/uL (0.1-1.4); ABSOLUTE NEUT (AUTO) 12.1 10^3/uL (1.7-8.2); BASOPHILS % (AUTO) 0.5 % (0-2); HEMATOCRIT 44.6 % (37.9-51.0); HEMOGLOBIN 15.3 g/dL (13.5-17.0); LYMPHOCYTES % (AUTO) 9.3 % (13-45); MEAN CORPUSCULAR HEMOGLOBIN 31.4 pg (27.0-33.4); MEAN CORPUSCULAR HGB CONC 34.2 g/dL (32.0-36.0); MEAN CORPUSCULAR VOLUME 92 fl (80-97); MONOCYTES % (AUTO) 4.9 % (3-13); PLATELET COUNT 242 10^3/uL (150-450); RED BLOOD COUNT 4.85 10^6/uL (4.35-5.55); RED CELL DISTRIBUTION WIDTH 13.1 % (11.5-14.0); SEGMENTED NEUTROPHILS % (AUTO) 84.3 % (42-78); TOTAL CELLS COUNTED % (AUTO) 100 %; WHITE BLOOD COUNT 14.3 10^3/uL (4.0-10.5)
[2020-04-07 21:25] LABS: APPEARANCE,URINE CLOUDY; BILIRUBIN,URINE NEGATIVE (NEGATIVE); CALCIUM OXALATE CRYSTALS,URINE FEW /HPF; COLOR,URINE YELLOW; GLUCOSE, URINE NEGATIVE (NEGATIVE); KETONES,URINE TRACE mg/dL (NEGATIVE); PROTEIN,URINE 30 mg/dL (NEGATIVE); UROBILINOGEN,URINE NEGATIVE mg/dL (<2.0)
[2020-04-07 21:37] LABS: ALBUMIN 4.5 g/dL (3.5-5.0); ALKALINE PHOSPHATASE 57 U/L (38-126); ANION GAP 9 (5-19); ASPARTATE AMINO TRANSFERASE 21 U/L (17-59); BILIRUBIN,TOTAL 0.5 mg/dL (0.2-1.3); BLOOD UREA NITROGEN 22 mg/dL (7-20); CALCIUM 9.7 mg/dL (8.4-10.2); CARBON DIOXIDE 27 mmol/L (22-30); CHLORIDE 100 mmol/L (98-107); GLUCOSE 117 mg/dL (75-110); POTASSIUM 4.5 mmol/L (3.6-5.0); TOTAL PROTEIN 7.3 g/dL (6.3-8.2)
--- NOTE | 2020-04-07 21:41 | RADIOLOGY REPORT (SQ) ---
EXAM DESCRIPTION: CT ABDOMEN PELVIS WITHOUT IV CONTRAST COMPLETED DATE/TME: 04/07/2020 20:53 CLINICAL HISTORY: 59 years, Male, right flank pain This exam was performed according to our departmental dose-optimization program which includes automated exposure control, adjustment of the mA and/or kVp according to patient size and/or use of iterative reconstruction technique where applicable. FINDINGS: Visualized lung bases are within normal limits. Liver, spleen, pancreas, gallbladder, adrenal glands and kidneys are within normal limits. No hydronephrosis or biliary dilatation. There is no renal, ureteral or bladder calculus. No dilated loops of bowel to suggest obstruction. Mild amount of stool in the colon. Appendix is normal. No free fluid or free air. Mild sigmoid diverticulosis without CT evidence for acute diverticulitis. The bladder is unremarkable. Prostate is mildly enlarged, measuring 5.5 x 5.0 cm. No abdominal or pelvic lymphadenopathy. Abdominal aorta mildly calcified without aneurysm. IMPRESSION: Mild sigmoid diverticulosis without CT evidence for acute diverticulitis. No evidence for urinary obstruction. No evidence for nephrolithiasis. No acute appendicitis.
--- NOTE | 2020-04-08 01:01 | ER Document Report ---
ED General - General Chief Complaint: Flank Pain Stated Complaint: RIGHT SIDED FLANK PAIN Time Seen by Provider: 04/07/20 20:45 Primary Care Provider: LYNN GIMENEZ MD [Primary Care Provider] - Follow up as needed TRAVEL OUTSIDE OF THE [place] IN LAST 30 DAYS: No - HPI Notes: Patient is a 59-year-old male who presents to the emergency department for evaluation of right flank pain. It started earlier today. He states it has been constant, but waxes and wanes in nature. Positionally it seems to improve. Nauseated when it was severe, but it has not been severe in several hours. He states he has had pain similar to this in the past, he believes it was a kidney infection or kidney stone. He denies any fevers or chills. He had a nausea but no emesis. He denies any gross hematuria, dysuria, urinary frequency. Normal bowel movement earlier today. Currently puts his pain at a 2 out of 5. He denies any bowel or bladder incontinence, saddle anesthesia, no focal numbness or weakness. - Related Data Allergies/Adverse Reactions: Penicillins Allergy (Verified 01/04/19 05:55) Home Medications: List reviewed, please see note Past Medical History - General Information source: Patient - Social History Smoking Status: Never Smoker Chew tobacco use (# tins/day): No Frequency of alcohol use: None Drug Abuse: None Family History: Reviewed & Not Pertinent, DM, Hypertension Patient has homicidal ideation: No - Past Medical History Cardiac Medical History: Reports: Hx Hypertension Denies: Hx Coronary Artery Disease, Hx Heart Attack Pulmonary Medical History: Denies: Hx Asthma, Hx Bronchitis, Hx COPD, Hx Pneumonia Neurological Medical History: Denies: Hx Cerebrovascular Accident, Hx Seizures Endocrine Medical History: Reports: Hx Diabetes Mellitus Type 2, Hx Hypothyroidism Renal/ Medical History: Reports: Hx Benign Prostatic Hyperplasia, Hx Kidney Stones. Denies: Hx Peritoneal Dialysis Musculoskeletal Medical History: Reports Hx Arthritis - BACK Past Surgical History: Reports: Hx Orthopedic Surgery - neck/back, Hx Thyroid Surgery - Immunizations Hx Diphtheria, Pertussis, Tetanus Vaccination: No - UNKNOWN Review of Systems - Review of Systems Gastrointestinal: See HPI Genitourinary: See HPI -: Yes All other systems reviewed and negative Physical Exam - Vital signs Vitals: Temp Pulse Resp BP Pulse Ox 98.6 F 86 16 117/53 L 97 04/07/20 19:31 04/07/20 19:31 04/07/20 19:31 04/07/20 19:31 04/07/20 19:31 - Notes Notes: Vital signs reviewed, please refer to chart. Head is normocephalic, atraumatic. Pupils equal round, reactive to light. Neck is supple without meningismus. Heart is regular rate and rhythm. Lungs are clear to auscultation bilaterally. Abdomen is soft, nontender, normoactive bowel sounds throughout. No CVA tenderness noted. Patient does have some right-sided paraspinal musculature tenderness noted from approximately L3 down through L5 on the right. Extremities without cyanosis, clubbing. Posterior calves are nontender. Peripheral pulses are equal. Skin is warm and dry. Patient is awake, alert, neurological exam is nonfocal. Course - Re-evaluation Re-evalutation: 04/08/20 00:58 Patient presents to the emergency department for evaluation. He had laboratory investigations as ordered through triage. He had CT scan ordered as well. CT scan failed to show any signs of obstructive uropathy or acute abdominal pelvic process. Patient does have some oxalic acid crystals noted in his urine. I explained to the patient that he may have passed a recent kidney stone, re sponsible for his pain, but he has no current signs of obstructive stone, no signs of hydronephrosis. I encouraged him to increase his water intake. On questioning, the patient admits to drinking a large amount of tea, I told him that can be responsible for formation of oxalic acid stones, encouraged him to decrease his tea intake. He voiced understanding. Otherwise the patient is already on Flomax. I will send him home with anti-inflammatories. He is to follow closely with primary care, return to the ED with worsening or new concerning symptoms. I also did explain to the patient he has a very mildly elevated white blood cell count, this could be secondary to pain or stress, but he can follow-up with his primary care provider in regards to this issue as well. - Vital Signs Vital signs: Temp Pulse Resp BP Pulse Ox 98.9 F 67 18 114/61 96 04/07/20 22:32 04/07/20 22:32 04/07/20 22:32 04/07/20 22:32 04/07/20 22:32 - Laboratory Result Diagrams: 04/07/20 21:00 04/07/20 21:00 Laboratory results interpreted by me: 04/07/20 04/07/20 04/07/20 21:00 21:00 21:00 WBC 14.3 H Lymph % (Auto) 9.3 L Absolute Neuts (auto) 12.1 H Seg Neutrophils % 84.3 H Sodium 136.1 L BUN 22 H Glucose 117 H Urine Protein 30 H Urine Ketones TRACE H Leukocyte Esterase Rfl TRACE H - Diagnostic Test Radiology reviewed: Reports reviewed Radiology results interpreted by me: 04/08/20 00:59 Abdomen/Pelvis CT 04/07/20 20:53 IMPRESSION: Mild sigmoid diverticulosis without CT evidence for acute diverticulitis. No evidence for urinary obstruction. No evidence for nephrolithiasis. No acute appendicitis. Discharge - Discharge Clinical Impression: Right flank pain, Leukocytosis Condition: Stable Disposition: HOME, SELF-CARE Instructions: Flank Pain ([facility]) Additional Instructions: Your pain today may have been caused by passing a kidney stone. There are crystals noted in your urine. As discussed, please increase water intake, decrease tea intake, which may be helpful. Take Mobic as directed, as needed for pain. Follow-up with primary care this week. Return to the emergency department with worsening or new concerning symptoms of any sort. Referrals: LYNN GIMENEZ MD [Primary Care Provider] - Follow up as needed
[2020-04-08 01:52] VITALS: BP 115/56
== END 2020-04-08 01:57 | disposition home or self-care (01) ==
LOC: ER 19:20
DX: R10.9 Unspecified abdominal pain (principal); D72.829 Elevated white blood cell count, unspecified; I10 Essential (primary) hypertension; E11.9 Type 2 diabetes mellitus without complications; Z88.0 Allergy status to penicillin; Z87.442 Personal history of urinary calculi
CPT/HCPCS: 36415; 74176; 80053; 81001; 85025; 99284

== ENCOUNTER 2020-04-13 13:27 | Emergency (ER) | payer MEDICARE, OTHER ==
[2020-04-13] MEDS ORDERED: KETOROLAC TROMETHAMINE INJ/PF 30 MG/1 ML SDV IV ONE ×2 (14:50→20:45)
--- NOTE | 2020-04-13 14:51 | ER Document Report ---
ED Medical Screen (RME) - General Chief Complaint: Flank Pain Stated Complaint: FLANK PAIN Time Seen by Provider: 04/13/20 14:40 Primary Care Provider: LYNN GIMENEZ MD [Primary Care Provider] - Follow up as needed Notes: HPI: 59-year-old male presenting back to the emergency department complaining of continued pain from the right lower back radiating around into the right flank and lower abdomen. States pain began 6 or 7 days ago states he was seen in the emergency department at that time had imaging and lab work done was placed on meloxicam but still has had constant pain that does change with position and movement. Denies any traumatic history. Denies penile or testicular pain. PHYSICAL EXAMINATION: Appears mildly uncomfortable. There is tenderness in the right lower back on palpation with some right flank pain on palpation. On review of patient records patient had a mild leukocytosis of 14.36 days ago. His other lab work did not show acute findings including urinalysis and CMP. CT imaging did not show appendicitis but did show diverticulosis and did not show evidence of a kidney stone but was a noncontrasted study I have greeted and performed a rapid initial assessment of this patient. A comprehensive ED assessment and evaluation of the patient, analysis of test results and completion of medical decision making process will be conducted by an additional ED providers. TRAVEL OUTSIDE OF THE [place] IN LAST 30 DAYS: No - Related Data Allergies/Adverse Reactions: Penicillins Allergy (Verified 01/04/19 05:55) Past Medical History - Past Medical History Cardiac Medical History: Reports: Hx Hypertension Denies: Hx Coronary Artery Disease, Hx Heart Attack Pulmonary Medical History: Denies: Hx Asthma, Hx Bronchitis, Hx COPD, Hx Pneumonia Neurological Medical History: Denies: Hx Cerebrovascular Accident, Hx Seizures Endocrine Medical History: Reports: Hx Diabetes Mellitus Type 2, Hx Hypothyroidism Renal/ Medical History: Reports: Hx Benign Prostatic Hyperplasia, Hx Kidney Stones. Denies: Hx Peritoneal Dialysis Musculoskeltal Medical History: Reports Hx Arthritis - BACK Past Surgical History: Reports: Hx Orthopedic Surgery - neck/back, Hx Thyroid Surgery - Immunizations Hx Diphtheria, Pertussis, Tetanus Vaccination: No - UNKNOWN Physical Exam - Vital signs Vitals: Temp Pulse Resp BP Pulse Ox 98.8 F 79 16 137/74 H 100 04/13/20 13:31 04/13/20 13:31 04/13/20 13:31 04/13/20 13:31 04/13/20 13:31 Course - Vital Signs Vital signs: Temp Pulse Resp BP Pulse Ox 98.8 F 79 16 137/74 H 100 04/13/20 13:31 04/13/20 13:31 04/13/20 13:31 04/13/20 13:31 04/13/20 13:31 Doctor's Discharge - Discharge Referrals: LYNN GIMENEZ MD [Primary Care Provider] - Follow up as needed
[2020-04-13 15:34] LABS: ABSOLUTE BASOPHILS # (AUTO) 0.1 10^3/uL (0.0-0.2); ABSOLUTE EOSINOPHILS # (AUTO) 0.2 10^3/uL (0.0-0.6); ABSOLUTE LYMPHOCYTES (AUTO) 1.6 10^3/uL (0.5-4.7); ABSOLUTE MONOCYTES (AUTO) 0.7 10^3/uL (0.1-1.4); ABSOLUTE NEUT (AUTO) 8.9 10^3/uL (1.7-8.2); BASOPHILS % (AUTO) 0.6 % (0-2); EOSINOPHILS % (AUTO) 1.5 % (0-6); HEMOGLOBIN 15.6 g/dL (13.5-17.0); LYMPHOCYTES % (AUTO) 13.8 % (13-45); MEAN CORPUSCULAR HEMOGLOBIN 31.1 pg (27.0-33.4); MEAN CORPUSCULAR HGB CONC 33.2 g/dL (32.0-36.0); MEAN CORPUSCULAR VOLUME 94 fl (80-97); PLATELET COUNT 241 10^3/uL (150-450); RED BLOOD COUNT 5.03 10^6/uL (4.35-5.55); RED CELL DISTRIBUTION WIDTH 13.5 % (11.5-14.0); SEGMENTED NEUTROPHILS % (AUTO) 78.1 % (42-78); TOTAL CELLS COUNTED % (AUTO) 100 %; WHITE BLOOD COUNT 11.4 10^3/uL (4.0-10.5)
[2020-04-13 15:55] LABS: ALBUMIN 4.6 g/dL (3.5-5.0); ALKALINE PHOSPHATASE 48 U/L (38-126); ANION GAP 9 (5-19); ASPARTATE AMINO TRANSFERASE 21 U/L (17-59); BILIRUBIN,TOTAL 0.9 mg/dL (0.2-1.3); BLOOD UREA NITROGEN 18 mg/dL (7-20); CALCIUM 9.5 mg/dL (8.4-10.2); CARBON DIOXIDE 27 mmol/L (22-30); CHLORIDE 100 mmol/L (98-107); GLUCOSE 136 mg/dL (75-110); POTASSIUM 4.5 mmol/L (3.6-5.0); TOTAL PROTEIN 7.4 g/dL (6.3-8.2)
[2020-04-13 16:17] LABS: APPEARANCE,URINE CLEAR; BILIRUBIN,URINE NEGATIVE (NEGATIVE); COLOR,URINE YELLOW; GLUCOSE, URINE NEGATIVE (NEGATIVE); KETONES,URINE NEGATIVE (NEGATIVE); LEUKOCYTE ESTERASE,URINE NEGATIVE (NEGATIVE); NITRITE,URINE NEGATIVE (NEGATIVE); PROTEIN,URINE NEGATIVE (NEGATIVE); UROBILINOGEN,URINE NEGATIVE mg/dL (<2.0)
--- NOTE | 2020-04-13 19:01 | RADIOLOGY REPORT (SQ) ---
EXAM DESCRIPTION: CT ABD/PELVIS WITH IV ONLY IMAGES COMPLETED DATE/TIME: 04/13/2020 6:25 pm REASON FOR STUDY: right flank pain COMPARISON: None. TECHNIQUE: CT scan of the abdomen and pelvis performed using helical scanning technique with dynamic intravenous contrast injection. No oral contrast. Images reviewed with lung, soft tissue, and bone windows. Reconstructed coronal and sagittal MPR images reviewed. Delayed images for evaluation of the urinary system also acquired. All images stored on PACS. All CT scanners at this facility use dose modulation, iterative reconstruction, and/or weight based d osing when appropriate to reduce radiation dose to as low as reasonably achievable (ALARA). [facility]: Dose Right [facility]: CareDose [facility]: Dose Right [facility]: Teradose 4D [facility]: Cuponomia CONTRAST TYPE AND DOSE: contrast/concentration: Isovue 350.00 mmol/ml; Total Contrast Delivered: 100 .0 ml; Total Saline Delivered: 72.0 ml RENAL FUNCTION: BUN 18 creatinine 0.87 RADIATION DOSE: CT Rad equipment meets quality standard of care and radiation dose reduction techniq ues were employed. CTDIvol: 10.0 - 14.0 mGy. DLP: 1305 mGy-cm.. LIMITATIONS: None. FINDINGS: LOWER CHEST: No significant findings. No nodules or infiltrates. LIVER: Normal size. No masses. No dilated ducts. SPLEEN: Normal size. No focal lesions. PANCREAS: No masses. No significant calcifications. No adjacent inflammation or peripancreatic fluid collections. Pancreatic duct not dilated. GALLBLADDER: No identified stones by CT criteria. No inflammatory changes to suggest cholecystitis. ADRENAL GLANDS: No significant masses or asymmetry. RIGHT KIDNEY AND URETER: No solid masses. No significant calcifications. No hydronephrosis or hyd roureter. LEFT KIDNEY AND URETER: No solid masses. No significant calcifications. No hydronephrosis or hydr oureter. AORTA AND VESSELS: No aneurysm. No dissection. Renal arteries, SMA, celiac without stenosis. RETROPERITONEUM: No retroperitoneal adenopathy, hemorrhage or masses. BOWEL AND PERITONEAL CAVITY: No masses or inflammatory changes. No free fluid or peritoneal masses. APPENDIX: Not identified. PELVIS: There is nodular protrusion of the prostate gland into the base of the bladder. Thickening o f the wall of the bladder. Enlargement of the prostate gland. ABDOMINAL WALL: No masses. No hernias. BONES: There are dense sclerotic lesions at L1 and L4, likely bone islands. OTHER: No other significant finding. IMPRESSION: Prostatic enlargement with protrusion of the prostate gland into the base of the bladder . Thickening of the bladder wall suggests some degree of bladder outlet obstruction. Sclerotic osse ous lesions likely represent bone islands but metastatic disease cannot be excluded. TECHNICAL DOCUMENTATION: JOB ID: [id number] Quality ID # [id number]: Final reports with documentation of one or more dose reduction techniques (e.g., Au tomated exposure control, adjustment of the mA and/or kV according to patient size, use of iterative reconstruction technique) 2010 [employer]- All Rights Reserved Reading location - IP/workstation name: [email or web address]
[2020-04-13] MEDS ORDERED: METHYLPREDNISOLONE INJ 125 MG/2 ML SDV IV ONE (20:46)
[2020-04-13] MEDS ORDERED: HYDROCODONE/ACETAMINOPHEN 5-325 MG (6 TAB/ER DISP) PO PRN (20:46)
[2020-04-13 21:12] VITALS: BP 147/71
--- NOTE | 2020-04-14 05:39 | ER Document Report ---
Entered by CORNEL OTT SCRIBE 04/13/202043 Acting as scribe for:SALENA SCHWARTZ IV, MD ED General - General Chief Complaint: Flank Pain Stated Complaint: FLANK PAIN Time Seen by Provider: 04/13/20 14:40 Primary Care Provider: LYNN GIMENEZ MD [Primary Care Provider] - Follow up as needed ERIN ESPOSITO MD [ACTIVE STAFF] - 04/16/20 Mode of Arrival: Ambulatory Information source: Patient Notes: This 59 year old male patient with a history of kidney infection and stones presents to the ED today with complaints of right-sided flank pain for the past week. Patient states that the pain radiates towards his lower abdomen on the right and is exacerbated by changing positions or voiding. Reports associated nausea, but denies any vomiting, dysuria, or dizziness. He states that the pain is similar to his prior kidney infection. He was seen here a x1 week ago for the same thing and had a CT done with unremarkable results. TRAVEL OUTSIDE OF THE [place] IN LAST 30 DAYS: No - Related Data Allergies/Adverse Reactions: Penicillins Allergy (Verified 01/04/19 05:55) Past Medical History - General Information source: Patient, [facility], [facility] Records - Social History Smoking Status: Former Smoker Cigarette use (# per day): No Chew tobacco use (# tins/day): No Smoking Education Provided: No Frequency of alcohol use: None Drug Abuse: None Family History: Reviewed & Not Pertinent, DM, Hypertension Patient has suicidal ideation: No Patient has homicidal ideation: No - Past Medical History Cardiac Medical History: Reports: Hx Hypertension Endocrine Medical History: Reports: Hx Diabetes Mellitus Type 2, Hx Hypothyroidism Renal/ Medical History: Reports: Hx Benign Prostatic Hyperplasia, Hx Kidney Stones Musculoskeletal Medical History: Reports Hx Arthritis - BACK Past Surgical History: Reports: Hx Inguinal Hernia, Hx Orthopedic Surgery - neck/back, Hx Thyroid Surgery - Immunizations Hx Diphtheria, Pertussis, Tetanus Vaccination: No - UNKNOWN Review of Systems - Review of Systems Constitutional: No symptoms reported EENT: No symptoms reported Cardiovascular: See HPI. denies: Dizziness Respiratory: No symptoms reported Gastrointestinal: See HPI, Abdominal pain, Nausea. denies: Vomiting Genitourinary: See HPI, Flank pain. denies: Dysuria Male Genitourinary: No symptoms reported Musculoskeletal: No symptoms reported Skin: No symptoms reported Hematologic/Lymphatic: No symptoms reported Neurological/Psychological: No symptoms reported -: Yes All other systems reviewed and negative Physical Exam - Vital signs Vitals: Temp 98.8 F 04/13/20 13:27 - General General appearance: Alert In distress: None - HEENT Head: Normocephalic, Atraumatic Eyes: Normal Pupils: PERRL - Respiratory Respiratory status: No respiratory distress Chest status: Nontender Breath sounds: Normal Chest palpation: Normal - Cardiovascular Rhythm: Regular Heart sounds: Normal auscultation Murmur: No Friction rub: No Gallop: None auscultated - Abdominal Inspection: Normal, Other - No aortic bruit or pulsatile masses Distension: No distension Bowel sounds: Normal Tenderness: Nontender - Abdomen soft Organomegaly: No organomegaly - Back Back: Tender - Point tenderness noted to sacral iliac joint on the right side. Positive straight leg raise at 45 degrees on the right - Extremities General upper extremity: Normal inspection General lower extremity: Normal inspection. No: Edema - Neurological Neuro grossly intact: Yes Orientation: AAOx4 Gayatri Coma Scale Eye Opening: Spontaneous Gayatri Coma Scale Verbal: Oriented Gayatri Coma Scale Motor: Obeys Commands [place] Coma Scale Total: 15 - Psychological Associated symptoms: Normal affect, Normal mood - Skin Skin Temperature: Warm Skin Moisture: Dry Skin Color: Normal Course - Re-evaluation Re-evalutation: 04/13/20 20:49 Course of ED MSE discussed with patient. All questions were answered prior to discharge. Patient is already aware he does have some prostatic hypertrophy itching issues which he is on Flomax for. Patient states his symptoms seems somewhat like a urinary tract infection he had a couple years ago but there does not seem to be evidence for that at this time. Given the point tenderness in his right sacroiliac region and his positive right straight leg raise along with his complaint of worsening symptoms with movement, etiology pain seems more musculoskeletal in origin. Patient asked if he should be on antibiotics "just in case." This MD advised against that and recommended using prednisone and pain medication to see if he could get relief of his symptoms over the next 48 hours. Patient was then instructed that if he was not improving he could follow-up with his PCP or return to the emergency department for reevaluation. Patient states that he was comfortable with this plan. All questions were answered prior to discharge. Emergency signs and symptoms, reasons to return to the emergency department discussed with patient. - Vital Signs Vital signs: Temp Pulse Resp BP Pulse Ox 98.8 F 79 16 137/74 H 100 04/13/20 13:31 04/13/20 13:31 04/13/20 13:31 04/13/20 13:31 04/13/20 13:31 - Laboratory Result Diagrams: 04/13/20 15:20 04/13/20 15:20 Laboratory results interpreted by me: 04/13/20 04/13/20 15:20 15:20 WBC 11.4 H Absolute Neuts (auto) 8.9 H Seg Neutrophils % 78.1 H Sodium 136.4 L Glucose 136 H - Diagnostic Test Radiology reviewed: Reports reviewed Discharge - Discharge Clinical Impression: Musculoskeletal pain Condition: Stable Disposition: HOME, SELF-CARE Additional Instructions: Return to the Emergency Department without delay if any worse. HOME CARE INSTRUCTIONS & INFORMATION: Thank you for choosing us for your medical needs. We hope you're satisfied with the care you received. After you leave, you must properly care for your problem and, at the same time, observe its progress. Any condition can change. Some illnesses can change rapidly over hours or days. If your condition worsens, return to the Emergency Department or see your physician promptly. ABOUT YOUR X-RAYS AND EKG'S: If you had an EKG or X-rays taken, they have been read by the Emergency Physician. The X-rays and EKG's will also be read by a Radiologist or Medical Director/Head Team Physician within 24 hours. If discrepancies are noted, you will be notified by telephone. Please be certain the ED has a correct telephone number & address where you can be reached. Also, realize that some fractures or abnormalities do not show up on initial X-rays. If your symptoms continue, see your physician. ABOUT YOUR LABORATORY TEST: If you had laboratory tests, the results have been reviewed by the Emergency Physician. Some test results (for example cultures) may not be available for several days. You will be contacted if any test result shows you need additional treatment. Please be certain the ED has a correct telephone number and address where you can be reached. ABOUT YOUR MEDICATIONS: You will receive instructions on how to take your medicine on the prescription label you receive. Additional information may be provided by the Pharmacy. If you have questions afterwards, call the ED for clarification or further instructions. Some prescribed medications may cause drowsiness. Do not perform tasks such as driving a car or operating machinery without consulting your Pharmacist. If you feel you need a refill of pain medication, your condition will need re-evaluation. Please do not call for a refill of any medication. ABOUT YOUR SIGNATURE: Signature of this document acknowledges to followin. Understanding that you received emergency treatment and that you may be released before al medical problems are known or treated. Please be certain the ED has a correct phone number & address where you can be reached. 2. Acknowledgement that you will arrange for follow-up care as recommended. 3. Authorization for the Emergency Physician to provide information to your follow-up Physician in order to maximize your care. AT ANY TIME, IF YOUR SYMPTOMS CHANGE SIGNIFICANTLY OR WORSEN OR YOU DEVELOP NEW SYMPTOMS, RETURN TO THE EMERGENCY DEPARTMENT IMMEDIATELY FOR RE-EVALUATION. OUR GOAL IS TO PROVIDE EXCELLENT MEDICAL CARE! WE HOPE THAT WE HAVE MET YOUR EXPECTATIONS DURING YOUR EMERGENCY DEPARTMENT VISIT AND THAT YOU FEEL YOU HAVE RECEIVED EXCELLENT CARE! Prescriptions: Oxycodone HCl/Acetaminophen [Percocet 5-325 mg Tablet] 1 tab PO Q6HP PRN #15 tablet PRN Reason: pain Prednisone [Deltasone 10 mg Tablet] 10 mg PO ASDIR PRN #21 tablet PRN Reason: Referrals: LYNN GIMENEZ MD [Primary Care Provider] - Follow up as needed ERIN ESPOSITO MD [ACTIVE STAFF] - 04/16/20 I personally performed the services described in the documentation, reviewed and edited the documentation which was dictated to the scribe in my presence, and it accurately records my words and actions.
== END 2020-04-13 21:28 | disposition home or self-care (01) ==
LOC: ER 13:27
DX: R10.9 Unspecified abdominal pain (principal); R11.0 Nausea; N40.0 Benign prostatic hyperplasia without lower urinary tract symptoms; E11.9 Type 2 diabetes mellitus without complications; I10 Essential (primary) hypertension; Z87.440 Personal history of urinary (tract) infections; Z87.442 Personal history of urinary calculi; Z88.0 Allergy status to penicillin; Z87.891 Personal history of nicotine dependence
CPT/HCPCS: 96376; 99284; 96374; 96375; 36415; 83690; 85025; 80053; 81001; 74177; J2930; J1885; A9270